=== PATIENT | female | born 1950 | race Caucasian/White ===

== ENCOUNTER 2018-02-17 08:38 | Day surgery (SDC) | payer OTHER ==
[~2018-02-17] VITALS: Ht 157.5 cm; Wt 60.0 kg
[~2018-02-17 08:38] MED LIST: ALBU90OI INH; ALEN70 PO; ASPI81EC PO; ATOR80 PO; Aspir 8181 MG PO; B-COMPLEX WITH1 EAC1 PO; CALCA500CH PO; DOCU100 PO; EFFIENT10 MG PO; EXFORGE 5/160 PO; Exforge 5-1601 EACH PO; GLIP10ER PO; HYDACE10B PO; HYDACE5 PO; LACT10SY PO; LISI5 PO; LORA10ER PO; METF500; METF500 PO; METF500C PO; METO50ER PO; NAC600 MG PO; NAPR500EC PO; Nitrostat0.4 MG SL; Norco 10-325 T1 EACH PO; OXYACE5T PO; Prinivil10 MG PO; SENN187 PO; TICA90TA PO; VITAMIN D3400 UNIT PO; WARF2
[2018-02-17 09:52] LABS: BASOPHILS ABSOLUTE AUTO 0.02 K/mm3 (0.00-0.23); BASOPHILS PERCENT AUTO 0 % (0-2); EOSINOPHILS ABSOLUTE AUTO 0.11 K/mm3 (0.00-0.68); EOSINOPHILS PERCENT AUTO 1 % (0-6); Hematocrit 39.2 % (33.0-51.0); Hemoglobin 12.5 g/dL (11.5-16.0); IMMATURE GRAN ABSOLUTE AUTO 0.03 K/mm3 (0.00-0.10); IMMATURE GRAN PERCENT AUTO 0 % (0-1); LYMPHOCYTES ABSOLUTE AUTO 1.02 K/mm3 (0.84-5.20); LYMPHOCYTES PERCENT AUTO 13 % (21-46); MONOCYTES ABSOLUTE AUTO 0.44 K/mm3 (0.16-1.47); MONOCYTES PERCENT AUTO 6 % (4-13); Mean Corpuscular HGB 28.2 pg (26.0-34.0); Mean Corpuscular HGB Conc 31.9 g/dL (31.5-36.5); Mean Corpuscular Volume 88 fL (80-100); Mean Platelet Volume 9.5 fL (9.1-12.4); NEUTROPHILS ABSOLUTE AUTO 6.45 K/mm3 (1.96-9.15); NEUTROPHILS PERCENT AUTO 80 % (41-73); Platelet Count 260 K/mm3 (150-400); RDW Coefficient Variation 14.1 % (11.7-14.2); RDW Standard Deviation 45.3 fL (35.1-46.3); Red Blood Cell Count 4.44 M/mm3 (3.80-5.20); White Blood Cell Count 8.07 K/mm3 (4.00-11.30)
[2018-02-17 10:07] LABS: International Normalized Ratio 1.05; Prothrombin Time Results 10.8 Sec (9.7-11.5)
[2018-02-17 10:18] LABS: Anion Gap 7 mmol/L (6-16); Blood Urea Nitrogen 14 mg/dL (8-24); Bun/Creatinine Ratio 20.1 (12.0-20.0); CO2, Blood 29 mmol/L (21-32); Calcium, Blood 8.4 mg/dL (8.5-10.1); Chloride, Blood 107 mmol/L (98-108); Glomerular Filtration Rate >60 (60-); Glucose, Blood 171 mg/dL (70-99); Potassium, Blood 4.2 mmol/L (3.5-5.5); Sodium, Blood 143 mmol/L (136-145)
== END 2018-02-17 22:41 | disposition home or self-care (01) ==
LOC: MHTC 08:38
PROVIDERS: Internal Medicine Cardiovascular Disease
PROC: B211YZZ Fluoroscopy of Multiple Coronary Arteries using Other Contrast (ICD-10-PCS; principal; 2018-02-17)
PROC: 4A023N7 Measurement of Cardiac Sampling and Pressure, Left Heart, Percutaneous Approach (ICD-10-PCS; principal; 2018-02-17)
DX: T82.855A Stenosis of coronary artery stent, initial encounter (principal); E78.00 Pure hypercholesterolemia, unspecified; I10 Essential (primary) hypertension; E11.9 Type 2 diabetes mellitus without complications; Z79.84 Long term (current) use of oral hypoglycemic drugs; I25.2 Old myocardial infarction; I25.5 Ischemic cardiomyopathy; E78.5 Hyperlipidemia, unspecified; I34.2 Nonrheumatic mitral (valve) stenosis; J44.9 Chronic obstructive pulmonary disease, unspecified
CPT/HCPCS: 80048; 85025; 85347; 85610; 93458; 99152; 99153; C1769; C1894; J0690; J1644; J2060; J2250; J3010; J7030; Q9967

== ENCOUNTER 2020-10-04 00:06 | Inpatient (IN) | payer OTHER ==
[~2020-10-04] VITALS: Ht 154.9 cm; Wt 76.7 kg
[~2020-10-04 00:06] MED LIST changes: +FURO40 PO; +K-TAB ER20 MEQ PO; +LEVO750 PO
[2020-10-04] MEDS ORDERED: DILT180 PO (00:44)
[2020-10-04] MEDS ORDERED: GLIP5ER PO (00:45)
[2020-10-04] MEDS ORDERED: Percocet 5-3251 EACH PO (00:46)
[2020-10-04] MEDS ORDERED: POTA10T PO (00:46)
[2020-10-04] MEDS ORDERED: PANT40 PO (00:46)
[2020-10-04] MEDS ORDERED: ALEN70 PO (00:47)
[2020-10-04] MEDS ORDERED: RYBELSUS3 MG PO (00:47)
[2020-10-04 01:40] LABS: BASOPHILS ABSOLUTE AUTO 0.02 K/mm3 (0.00-0.23); BASOPHILS PERCENT AUTO 0 % (0-2); EOSINOPHILS PERCENT AUTO 0 % (0-6); Hematocrit 38.5 % (33.0-51.0); Hemoglobin 11.4 g/dL (11.5-16.0); IMMATURE GRAN ABSOLUTE AUTO 0.05 K/mm3 (0.00-0.10); IMMATURE GRAN PERCENT AUTO 1 % (0-1); LYMPHOCYTES ABSOLUTE AUTO 0.72 K/mm3 (0.84-5.20); LYMPHOCYTES PERCENT AUTO 8 % (21-46); MONOCYTES ABSOLUTE AUTO 0.18 K/mm3 (0.16-1.47); MONOCYTES PERCENT AUTO 2 % (4-13); Mean Corpuscular HGB 30.3 pg (26.0-34.0); Mean Corpuscular HGB Conc 29.6 g/dL (31.5-36.5); Mean Corpuscular Volume 102 fL (80-100); Mean Platelet Volume 10.7 fL (9.1-12.4); NEUTROPHILS ABSOLUTE AUTO 7.67 K/mm3 (1.96-9.15); NEUTROPHILS PERCENT AUTO 89 % (41-73); Platelet Count 214 K/mm3 (150-400); RDW Coefficient Variation 17.2 % (11.7-14.2); RDW Standard Deviation 64.1 fL (35.1-46.3); Red Blood Cell Count 3.76 M/mm3 (3.80-5.20); White Blood Cell Count 8.64 K/mm3 (4.00-11.30)
[2020-10-04 01:57] LABS: International Normalized Ratio 1.47; Prothrombin Time Results 15.4 Sec (9.7-11.5)
[2020-10-04 02:07] LABS: Albumin, Blood 2.5 g/dL (3.4-5.0); Albumin/Globulin Ratio 0.6 (0.8-1.8); Bilirubin, Total 1.4 mg/dL (0.1-1.0); Calcium, Blood 7.4 mg/dL (8.5-10.1); Creatinine, Blood 2.3 mg/dL (0.40-1.00); Globulin, Blood 4.2 g/dL (2.2-4.0); Magnesium, Blood 2.4 mg/dL (1.6-2.4); Potassium, Blood 5.3 mmol/L (3.5-5.5); Total Protein, Blood 6.7 g/dL (6.4-8.2); Troponin I 0.136 ng/mL (0.000-0.040)
[2020-10-04 02:38] LABS: Source, Urine Catheter
[2020-10-04 03:16] LABS: Bilirubin, Urine Neg (Neg); Blood, Urine 3+ (Neg); Glucose Qualitative, Urine Neg (Neg); Ketones, Urine Neg (Neg); Leukocyte Esterase, Urine 1+ (Neg); Nitrite, Urine Neg (Neg); Protein, Urine 3+ (Neg); Urobilinogen, Urine NORM (Normal)
[2020-10-04 03:29] LABS: Appearance, Urine Hazy (Clear); Color, Urine Yellow (P-Yellow)
[2020-10-04 03:30] LABS: Bacteria Rare /hpf; Red Blood Cells, Urine 0-2 /hpf (0-2); White Blood Cells, Urine 0-2 /hpf (0-5); Yeast/Fungi Urine Mod /hpf
[2020-10-04 03:31] LABS: Amorphous Mod (0-Heavy); Squamous Epithelial Cells Rare /hpf (Few)
[2020-10-04 05:59] LABS: Influenza A, PCR NEGATIVE (NEGATIVE); Influenza B, PCR NEGATIVE (NEGATIVE); Resp Syncytial Virus, PCR NEGATIVE (NEGATIVE)
[2020-10-04 06:01] LABS: SARS-Cov-2 (COVID-19) PCR, MMC POSITIVE (NEGATIVE)
--- NOTE | 2020-10-04 09:00 | NUR ---
ADMIT PT ARRIVED TO ICU 11 AT 0820 VIA ER BED. PT IS AWAKE, ALERT, AND ORIENTED TO SELF AND ANSWERING SIMPLE QUESTIONS. PT IS CONFUSED AND FORGETFUL. PT INITIALLY ON NONREBREATHER AT 15L. PT PLACED ON AIRVO AFTER TRANSFER TO ICU BED. PT CONTINUALLY PULLING AT AIRVO, FREQUENT REMIDERS TO KEEP AIRVO IN PLACE NEEDED. PT WITH HR AFIB 100-130'S, HYPOTENSIVE WITH SBP 70-90'S. PERIPHERAL IV'S IN PLACE WITH NS BOLUS INFUSING. ATTENDS IN PLACE. PT WITH ABRASION TO COCCYX NOTED. MEPILEX PLACED. DR ALMEIDA NOTIFIED OF CONSULT. WILL CONTINUE TO MONITOR.
--- NOTE | 2020-10-04 09:04 | NUR ---
CALL TO FAMILY CALLED AND SPOKE WITH PT'S DAUGHTER WENDI REGARDING PT'S DECOMPENSATION AND GOALS OF CARE. SHE STATES PT HAS BEEN VERY RESISTANT TO DISCUSS ADVANCED CARE PLANNING IN THE PAST AND HAS BEEN CONSISTENTLY STATING FULL CODE. WENDI AGREES TO AT LEAST A "TRIAL OF EVERYTHING", TO INCLUDE INTUBATION, CPR AND VASOPRESSORS IF NEEDED. WENDI AGREEABLE TO CENTRAL LINE/PICC LINE PLACEMENT, AND STATES PT WOULD ALSO ACCEPT BLOOD PRODUCTS IF NEEDED.
[2020-10-04 10:53] LABS: Hematocrit 33.8 % (33.0-51.0); Hemoglobin 10.1 g/dL (11.5-16.0); Mean Corpuscular HGB 30.6 pg (26.0-34.0); Mean Corpuscular HGB Conc 29.9 g/dL (31.5-36.5); Mean Corpuscular Volume 102 fL (80-100); Mean Platelet Volume 10.4 fL (9.1-12.4); Platelet Count 173 K/mm3 (150-400); RDW Coefficient Variation 17.3 % (11.7-14.2); RDW Standard Deviation 65.2 fL (35.1-46.3); White Blood Cell Count 7.71 K/mm3 (4.00-11.30)
[2020-10-04 11:15] LABS: Albumin/Globulin Ratio 0.6 (0.8-1.8); Bilirubin, Total 0.7 mg/dL (0.1-1.0); Bun/Creatinine Ratio 32.4 (12.0-20.0); Calcium, Blood 6.6 mg/dL (8.5-10.1); Creatinine, Blood 2.22 mg/dL (0.40-1.00); Globulin, Blood 3.4 g/dL (2.2-4.0); Potassium, Blood 5.4 mmol/L (3.5-5.5); Total Protein, Blood 5.4 g/dL (6.4-8.2)
[2020-10-04 11:34] LABS: Source, Urine Catheter
[2020-10-04 11:45] LABS: Appearance, Urine Hazy (Clear); Bilirubin, Urine Neg (Neg); Blood, Urine 2+ (Neg); Color, Urine Yellow (P-Yellow); Glucose Qualitative, Urine Neg (Neg); Ketones, Urine Neg (Neg); Leukocyte Esterase, Urine 2+ (Neg); Nitrite, Urine Neg (Neg); Protein, Urine 3+ (Neg); Specific Gravity, Urine 1.025 (1.003-1.022); Urobilinogen, Urine NORM (Normal)
[2020-10-04 11:59] LABS: Bacteria Few /hpf; Red Blood Cells, Urine 0-2 /hpf (0-2); Squamous Epithelial Cells Few /hpf (Few); Yeast/Fungi Urine Many /hpf
[2020-10-04 12:07] LABS: BASOPHILS PERCENT MAN 0 % (0-2); EOSINOPHILS PERCENT MAN 0 % (0-6); LYMPHOCYTES ABSOLUTE MAN 0.23 K/mm3 (0.84-5.20); LYMPHOCYTES PERCENT MAN 3 % (21-46); MONOCYTES ABSOLUTE MAN 0.15 K/mm3 (0.16-1.47); MONOCYTES PERCENT MAN 2 % (4-13); NEUTROPHILS ABSOLUTE MAN 7.32 K/mm3 (1.96-9.15); SEG NEUTROPHILS PERCENT MAN 95 % (41-73); TOTAL CELLS COUNTED 100
--- NOTE | 2020-10-04 12:28 | NUR ---
UPDATE PT REMAINS ON BIPAP AT THIS TIME, 05/03, FIO2 TITRATED DOWN TO 65%. PT REMAINS HYPOTENSIVE AND HR INCREASED TO 130-150'S AFIB. DR ALMEIDA AWARE. 20 MG CARDIZEM IV PUSH GIVEN WITH DECREASE IN HR TO 80-100'S AFIB. LEVOPHED REMAINS AT 10 MCG/MIN.
--- NOTE | 2020-10-04 13:05 | NUR ---
CARE COORDINATION REFERRAL - ADMIT: 10/04/20 DISCHARGE: DX:PT IS COVID +, SOB. CC: 08/16/20 DISCHARGE: 09/03/20 DX: TOXIC METABOLIC ENCEPHALOPATHY PILAR CALL: RESIDENCE: [facility] CAREGIVER: DAUGHTER WENDI LARA [phone] DX: CHF, COVID 19, HTN, DM-TYPE 2, SEE LIST DME: [employer]OCK[employer] CCM: REFERRAL 2020 HOME HEALTH: [facility]- SUMMARY: Admit: 10/04/20
[2020-10-04 14:27] LABS: PCO2 Venous 63.5 mmHg (38-42); PO2 Venous 41.7 mmHg (38-42); pH Blood Venous 7.15 (7.34-7.37)
--- NOTE | 2020-10-04 17:37 | NUR ---
SHIFT SUMMARY PT HAS STABILIZED THIS AFTERNOON. PT REMAINS ON BIPAP AND SEDATED WITH PRECEDEX. BIPAP 16/5, FIO2 50%. PT WITH QUICK DESATURATION AND LONG RECOVERY WITH TURNS/REPOSITIONING. PRECEDEX INFUSING AT 0.4 MCG/KG/MIN. PT GRIMMACES WITH CARE, BUT APPEARS TO BE RESTING QUIETLY WHEN UNDISTURBED. PT HAS REMAINED HYPOTENSIVE THIS SHIFT. PICC LINE TO NAM INSERTED, AND ART LINE TO LEFT FEMORAL SITE PLACED. LEVOPHED INFUSING AT 10 MCG/MIN AT THIS TIME, VASOPRESSIN AT 0.04 UNITS/HR, AMIO 1 MG/MIN, AND HEPARIN 13 UNITS/KG/HR. HR REMAINS IN AFIB. CHRISTIE TEMP PROBE IN PLACE WITH MINIMAL AMOUNT OF DARK YELLOW URINE OUTPUT THIS SHIFT. NO FAMILY AT BEDSIDE. WILL CONTINUE TO MONITOR AND REPORT OFF TO ONCOMING RN.
[2020-10-04 18:26] LABS: Base Excess Venous -9.3 mmol/L; Bicarbonate Venous 16.7 mmol/L (24.0-30.0); PCO2 Venous 54.7 mmHg (38-42); PO2 Venous 44.1 mmHg (38-42); pH Blood Venous 7.16 (7.34-7.37)
--- NOTE | 2020-10-04 19:00 | NUR ---
ASSUMED CARE ASSUMED CARE OF PATIENT. REMAINS ON BIPAP 16/5, BUR 14, FIO2 50%. RR 25-30s. SEDATED WITH PRECEDEX AT 0.4MCG/KG/HR. OPENS EYES TO VERBAL STIMULI. NOT FOLLOWING COMMANDS AT THIS TIME, BUT DOES MOVE ALL EXTREMITIES WEAKLY. SPEECH IS GARBLED AND DIFFICULT TO UNDERSTAND. MONITOR SHOWS AFIB, RATE 100-120s. BP STABLE WITH LEVOPHED AT 10MCG/MIN AND VASOPRESSIN AT 0.04UNITS/MIN. AMIODARONE INFUSING AT 1MG/MIN. HEPARIN GTT INFUSING PER PHARMACY. NAM PICC LINE NOTED. CHRISTIE PATENT AND DRAINING MINIMAL LINETTE URINE. PT IS IN DROPLET/AIRBORNE ISOLATION FOR COVID-19. SEE SHIFT ASSESSMENT FOR FULL ASSESSMENT.
[2020-10-04 19:05] LABS: Bun/Creatinine Ratio 30.2 (12.0-20.0); Calcium, Blood 6.8 mg/dL (8.5-10.1); Creatinine, Blood 2.35 mg/dL (0.40-1.00); Potassium, Blood 6.2 mmol/L (3.5-5.5)
[2020-10-05 04:17] LABS: Hematocrit 29.8 % (33.0-51.0); Hemoglobin 9.3 g/dL (11.5-16.0); Mean Corpuscular HGB 30.5 pg (26.0-34.0); Mean Corpuscular HGB Conc 31.2 g/dL (31.5-36.5); Mean Corpuscular Volume 98 fL (80-100); Mean Platelet Volume 10.6 fL (9.1-12.4); NRBC ABSOLUTE 0.02 K/mm3 (0.00-0.02); NRBC Auto 0.2 /100 WBC (0.0-0.2); Platelet Count 191 K/mm3 (150-400); RDW Coefficient Variation 17.3 % (11.7-14.2); RDW Standard Deviation 61.4 fL (35.1-46.3); Red Blood Cell Count 3.05 M/mm3 (3.80-5.20); White Blood Cell Count 11.33 K/mm3 (4.00-11.30)
[2020-10-05 04:33] LABS: Alanine Aminotransfer (ALT/SGP 58 U/L (12-78); Albumin, Blood 1.8 g/dL (3.4-5.0); Albumin/Globulin Ratio 0.6 (0.8-1.8); Alk Phos 127 U/L (50-136); Anion Gap 7 mmol/L (6-16); Aspartate Aminotrans (AST/SGOT 158 U/L (12-37); Bilirubin, Total 0.7 mg/dL (0.1-1.0); Blood Urea Nitrogen 77 mg/dL (8-24); Bun/Creatinine Ratio 32.1 (12.0-20.0); CO2, Blood 25 mmol/L (21-32); Calcium, Blood 6.6 mg/dL (8.5-10.1); Chloride, Blood 109 mmol/L (98-108); Glomerular Filtration Rate 21 (60-); Glucose, Blood 223 mg/dL (70-99); Magnesium, Blood 1.9 mg/dL (1.6-2.4); Potassium, Blood 4.9 mmol/L (3.5-5.5); Sodium, Blood 141 mmol/L (136-145); Total Protein, Blood 4.8 g/dL (6.4-8.2); Vancomycin, Random 12.7 ug/mL
[2020-10-05 04:42] LABS: BAND PERCENT MAN 2 % (0-8); BASOPHILS PERCENT MAN 0 % (0-2); EOSINOPHILS PERCENT MAN 0 % (0-6); LYMPHOCYTES ABSOLUTE MAN 0.45 K/mm3 (0.84-5.20); LYMPHOCYTES PERCENT MAN 4 % (21-46); MONOCYTES ABSOLUTE MAN 0.11 K/mm3 (0.16-1.47); MONOCYTES PERCENT MAN 1 % (4-13); NEUTROPHILS ABSOLUTE MAN 10.76 K/mm3 (1.96-9.15); SEG NEUTROPHILS PERCENT MAN 93 % (41-73); TOTAL CELLS COUNTED 100
--- NOTE | 2020-10-05 06:10 | NUR ---
SHIFT SUMMARY NO ACUTE CHANGES. REMAINED ON BIPAP T/O SHIFT WITH BREAKS LESS THAN ONE MINUTE FOR ORAL CARE. BIPAP 16/5, BUR 14, FIO2 50%. RR 20s. SEDATED WITH PRECEDEX BETWEEN 0.4-0.5MCG/KG/HR TO HELP PT TOLERATE BIPAP. PRECEDEX NOW AT 0.5MCG/KG/HR. PT CONTINUES TO BE ANXIOUS WHEN AWAKE. TEARFUL AT TIMES. MONITOR SHOWS AFIB, RATE 80s-100s THIS AM. BP STABLE WITH LEVOPHED NOW AT 3MCG/MIN. VASOPRESSIN HAS BEEN ON STAND-BY SINCE 49. AMIODARONE INFUSING AT 0.5MG/MIN PER ORDER. HEPARIN GTT NOW AT 11UNITS/KG/HR PER PHARMACY. BICARB GTT INFUSING AT 100CC/HR PER ORDER. NPO. CHRISTIE PATENT WITH 200CC URINE OUTPUT. BILATERAL TOES ARE STILL PURPLE/DUSKY, BUT HAS SLIGHTLY IMPROVED. FEET ARE COLD BILATERALLY. NAM PICC LINE PATENT WITH DRSG C/D/I. LEFT FEMORAL A-LINE, PATENT. ORAL CARE DONE Q4H. REPOSTIONED Q2H. WILL REPORT TO ONCOMING RN WHEN AVAILABLE.
--- NOTE | 2020-10-05 08:00 | NUR ---
ASSUMED CARE REPORT RECIEVED. PT IS RESTING IN BED QUIETLY ON BIPAP 16/5, FIO2 45%. PT AWAKENS EASILY TO VERBAL STIMULI. PT SPEAKS SOME WORDS, BUT IS DIFFICULT TO COMPREHEND. PT IS ABLE TO SQUEEZE HANDS UPON COMMAND. PT SHAKES HEAD NO TO PAIN. VITAL SIGNS STABLE AT THIS TIME. PICC TO NAM C/D/I. LEVOPHED INFUSING AT 4 MCG/MIN, BICARB AT 100 ML/HR, NS TKO, HEPARIN AT 11 UNITS/KG/HR, AMIODARONE 0.5 MG/MIN, AND PRECEDEX AT 0.5 MCG/KG/MIN. ART LINE IN PLACE TO LEFT FEMORAL SITE. GOOD WAVEFORM NOTED. CHRISTIE TEMP PROBE IN PLACE WITH MINIMAL AMOUNT OF YELLOW URINE OUTPUT NOTED. ATTENDS IN PLACE. TOES APPEAR DUSKY. WILL CONTINUE TO MONITOR.
[2020-10-05 09:42] LABS: PCO2 Arterial 49.9 mmHg (35-45); PO2 Arterial 98.4 mmHg (80-100); pH Blood Arterial 7.31 (7.35-7.45)
--- NOTE | 2020-10-05 13:30 | NUR ---
AIRVO TRIAL TRIALED PT OFF BIPAP AND BACK ON AIRVO WITH RT AT BEDSIDE. PT WITH IMMEDIATE INCREASE IN RESPIRATORY EFFORT AND RR TO 30'S. PT COMPLAINED OF SOB. PT PLACED BACK ON BIPAP 16/5, FIO2 40%. WILL CONTINUE TO MONITOR.
[2020-10-05 15:29] LABS: PO2 Arterial 96.7 mmHg (80-100); pH Blood Arterial 7.36 (7.35-7.45)
--- NOTE | 2020-10-05 17:59 | NUR ---
SHIFT SUMMARY NO ACUTE CHANGES THIS SHIFT. PT REMAINS BIPAP DEPENDENT, SETTINGS 16/5, FIO2 40%. PT REMAINS CONFUSED. PT MOANS OUT SOME WORDS AT TIMES. VITAL SIGNS STABLE. ART LINE TO LEFT FEMORAL SITE REMAINS C/D/I. PICC TO NAM REMAINS IN PLACE WITH LEVOPHED TITRATED DOWN TO 2 MCG/MIN, PRECEDEX AT 0.5 MCG/KG/MIN, AMIODARONE 0.5 MG/MIN, AND NS TKO. HEPARIN REMAINS ON STANDBY PER PHARMACY. CHRISTIE TEMP PROBE IN PLACE WITH 100 ML CLOUDY URINE OUTPUT THIS SHIFT. WILL CONTINUE TO MONITOR AND REPORT OFF TO ONCOMING RN.
--- NOTE | 2020-10-05 19:00 | NUR ---
ASSUMED CARE ASSUMED CARE OF PATIENT. REMAINS ON BIPAP 16/5, BUR 14, FIO2 40%. RR MID-20s.. SEDATED WITH PRECEDEX AT 0.5MCG/KG/HR. OPENS EYES TO VERBAL STIMULI. FOLLOWS SIMPLE COMMANDS. MOVE ALL EXTREMITIES WEAKLY. SPEECH IS DIFFICULT TO UNDERSTAND AT TIMES. PT IS TEARFUL AND STATES "I DON'T WANT TO " AND "I KNOW I'M GOING TO ." REASSURANCE PROVIDED. MONITOR SHOWS AFIB, RATE 90-110s. BP STABLE WITH LEVOPHED AT 2MCG/MIN. AMIODARONE INFUSING AT 0.5MG/MIN. HEPARIN GTT INFUSING PER PHARMACY. NAM PICC LINE NOTED. CHRISTIE PATENT AND DRAINING SMALL AMOUNT OF YELLOW URINE WITH SEDIMENT. PT IS IN DROPLET/AIRBORNE ISOLATION FOR COVID-19. SEE SHIFT ASSESSMENT FOR FULL ASSESSMENT.
[2020-10-06 04:17] LABS: Hematocrit 29.8 % (33.0-51.0); Hemoglobin 9.3 g/dL (11.5-16.0); Mean Corpuscular HGB 30.3 pg (26.0-34.0); Mean Corpuscular HGB Conc 31.2 g/dL (31.5-36.5); Mean Corpuscular Volume 97 fL (80-100); Mean Platelet Volume 10.7 fL (9.1-12.4); Platelet Count 191 K/mm3 (150-400); RDW Coefficient Variation 17.2 % (11.7-14.2); RDW Standard Deviation 61.3 fL (35.1-46.3); Red Blood Cell Count 3.07 M/mm3 (3.80-5.20); White Blood Cell Count 10.67 K/mm3 (4.00-11.30)
[2020-10-06 04:36] LABS: Alanine Aminotransfer (ALT/SGP 51 U/L (12-78); Albumin, Blood 1.8 g/dL (3.4-5.0); Albumin/Globulin Ratio 0.6 (0.8-1.8); Alk Phos 112 U/L (50-136); Anion Gap 8 mmol/L (6-16); Aspartate Aminotrans (AST/SGOT 116 U/L (12-37); Bilirubin, Total 0.7 mg/dL (0.1-1.0); Blood Urea Nitrogen 87 mg/dL (8-24); Bun/Creatinine Ratio 32.3 (12.0-20.0); CO2, Blood 24 mmol/L (21-32); Calcium, Blood 6.6 mg/dL (8.5-10.1); Chloride, Blood 108 mmol/L (98-108); Creatinine, Blood 2.69 mg/dL (0.40-1.00); Globulin, Blood 3.2 g/dL (2.2-4.0); Glomerular Filtration Rate 19 (60-); Glucose, Blood 169 mg/dL (70-99); Potassium, Blood 5.5 mmol/L (3.5-5.5); Sodium, Blood 140 mmol/L (136-145); Vancomycin, Random 19.4 ug/mL
[2020-10-06 04:43] LABS: BASOPHILS PERCENT MAN 0 % (0-2); EOSINOPHILS PERCENT MAN 0 % (0-6); LYMPHOCYTES ABSOLUTE MAN 0.21 K/mm3 (0.84-5.20); LYMPHOCYTES PERCENT MAN 2 % (21-46); MONOCYTES ABSOLUTE MAN 0.21 K/mm3 (0.16-1.47); MONOCYTES PERCENT MAN 2 % (4-13); NEUTROPHILS ABSOLUTE MAN 10.24 K/mm3 (1.96-9.15); SEG NEUTROPHILS PERCENT MAN 96 % (41-73); TOTAL CELLS COUNTED 100
--- NOTE | 2020-10-06 06:28 | NUR ---
SHIFT SUMMARY NO ACUTE CHANGES. REMAINED ON BIPAP T/O SHIFT WITH BREAKS OF ONE TO TWO MINUTES FOR ORAL CARE. BIPAP 16/5, BUR 14, FIO2 40%. RR 20s. SEDATED WITH PRECEDEX BETWEEN 0.6-0.9MCG/KG/HR TO HELP PT TOLERATE BIPAP. PRECEDEX NOW AT 0.9MCG/KG/HR. PT CONTINUES TO BE ANXIOUS WHEN AWAKE. TEARFUL AT TIMES. MONITOR SHOWS AFIB, RATE 80s-110s. BP STABLE WITH LEVOPHED NOW AT 1MCG/MIN. AMIODARONE INFUSING AT 0.5MG/MIN PER ORDER. HEPARIN GTT NOW AT 6.5UNITS/KG/HR PER PHARMACY. PTT SCHEDULED FOR 0700. NPO. CHRISTIE PATENT WITH 150CC URINE OUTPUT. SEDIMENT NOTED. BILATERAL TOES ARE DUSKY/PURPLE. FEET ARE COLD BILATERALLY. NAM PICC LINE PATENT WITH DRSG C/D/I. LEFT FEMORAL A-LINE, PATENT. ORAL CARE DONE Q4H. REPOSTIONED Q2H. WILL REPORT TO ONCOMING RN WHEN AVAILABLE.
--- NOTE | 2020-10-06 17:40 | NUR ---
SHIFT SUMMARY PT HAS REMAINED ON BIPAP THROUGHOUT THE SHIFT. PT DID NOT TOLERATE SHORT TRIAL ONTO AIRVO. BIPAP SETTINGS 10/5, FIO2 40%. PT HAS REMAINED ALERT, BUT CONFUSED THROUGHOUT THE DAY. PT WITH REPETITIVE PULLING AT BIPAP AND IV LINES. SBW RESTRAINTS IN PLACE AT THIS TIME. VITAL SIGNS HAVE REMAINED STABLE. LEVOPHED TITRATED OFF THIS MORNING. HR REMAINS AFIB, CONTROLLED WITH CARDIZEM GTT AT 2 MG/HR. HEPARIN INFUSING AT 5.5 UNITS/KG/HR, PRECEDEX INFUSING AT 1.2 MCG/KG/MIN. PICC TO NAM C/D/I. ARTLINE TO LEFT FEMORAL SITE REMAINS C/D/I. DOBHOFF PLACED THIS AFTERNOON. TF STARTED AT 10 ML/HR. CHRISTIE TEMP PROBE REMAINS IN PLACE WITH MINIMAL CLOUDY YELLOW OUTPUT NOTED. WILL CONTINUE TO MONITOR AND REPORT OFF TO ONCOMING RN.
--- NOTE | 2020-10-06 21:26 | NUR ---
PATIENT SLEEPING WITH BIPAP IN PLACE, AWAKENS TO VERBAL STIMULI. ANSWERING QUESTIONS APPROPRIATELY, YET FORGETTING THAT SHE NEEDS TO KEEP BIPAP AND NG IN PLACE. BILAT WRIST RESTRAINTS IN PLACE TO REMIND PATIENT TO NOT PULL AT LINES AND MASK. PATIENT COOPERATIVE WITH ORAL CARE WITH SUCTION TOOTH BRUSH. BIPAP CONTINUES AT 10/5 FIO2 35% DOBHOFF IN PLACE WITH NEPRO AT GOAL RATE OF 10 CC/HR. PRECEDEX 1.2 TO HELP PATIENT GIOVANNI BIPAP. CARDIZEM 2 TO HELP REGULATE AFIB RATE. HEPARIN DRIP CONTINUES PER PHARMACY.
--- NOTE | 2020-10-07 00:30 | NUR ---
PATIENT ABLE TO HAVE APROX 2 MIN BREAK FROM BIPAP ON 10L/HIGH FLOW NC NEEDING TO CONTINUOUSLY REMIND PATIENT TO BREATH THROUGH HER NOSE. PATIENT TEARFUL, ASKING WHEN SHE CAN GO HOME, AND WANTING TO NOT WEAR BIPAP ANYMORE. EXPLAINED TO PATIENT THE NEED FOR BIPAP DUE TO DROPPING OF HER OXYGEN LEVEL WHEN IT IS OFF, AND THAT WE ARE TRYING TO HELP HER GET BETTER.
[2020-10-07 04:40] LABS: Hematocrit 30.9 % (33.0-51.0); Hemoglobin 9.8 g/dL (11.5-16.0); Mean Corpuscular HGB 30.6 pg (26.0-34.0); Mean Corpuscular HGB Conc 31.7 g/dL (31.5-36.5); Mean Corpuscular Volume 97 fL (80-100); Mean Platelet Volume 10.8 fL (9.1-12.4); NRBC ABSOLUTE 0.02 K/mm3 (0.00-0.02); NRBC Auto 0.1 /100 WBC (0.0-0.2); Platelet Count 174 K/mm3 (150-400); RDW Standard Deviation 59.9 fL (35.1-46.3); White Blood Cell Count 14.87 K/mm3 (4.00-11.30)
[2020-10-07 04:56] LABS: Anion Gap 7 mmol/L (6-16); Blood Urea Nitrogen 100 mg/dL (8-24); Bun/Creatinine Ratio 34.4 (12.0-20.0); CO2, Blood 24 mmol/L (21-32); Calcium, Blood 7.3 mg/dL (8.5-10.1); Chloride, Blood 109 mmol/L (98-108); Creatinine, Blood 2.91 mg/dL (0.40-1.00); Glomerular Filtration Rate 17 (60-); Glucose, Blood 172 mg/dL (70-99); Phosphorus, Blood 4.9 mg/dL (2.5-4.9); Potassium, Blood 5.6 mmol/L (3.5-5.5); Sodium, Blood 140 mmol/L (136-145); Vancomycin, Random 18.7 ug/mL
[2020-10-07 05:29] LABS: BAND PERCENT MAN 9 % (0-8); BASOPHILS PERCENT MAN 0 % (0-2); EOSINOPHILS PERCENT MAN 0 % (0-6); LYMPHOCYTES ABSOLUTE MAN 0.89 K/mm3 (0.84-5.20); LYMPHOCYTES PERCENT MAN 6 % (21-46); MONOCYTES ABSOLUTE MAN 0.29 K/mm3 (0.16-1.47); MONOCYTES PERCENT MAN 2 % (4-13); NEUTROPHILS ABSOLUTE MAN 13.68 K/mm3 (1.96-9.15); SEG NEUTROPHILS PERCENT MAN 83 % (41-73); TOTAL CELLS COUNTED 100
--- NOTE | 2020-10-07 06:24 | NUR ---
SUMMARY PATIENT SLEEPING MOST OF THE NIGHT WITH BIPAP IN PLACE. AWAKENS TO SLIGHT STIMULI, HAVING SHORT BREAKS FROM BIPAP ON 10L/NC FOR ORAL CARE, PATIENT BECOMING ANXIOUS WITH HR AND BP ELEVATING WHEN OFF BIPAP. PRECEDEX CONTINUES AT 1 MCG TO HELP PATIENT GIOVANNI BIPAP. CARDIZEM DRIP CONTINUES AT 5 MG/HR FOR RATE CONTROL OF AFIB. HR UP TO 130'S WHEN OFF BIPAP. TUBE FEEDING VIA DOBHOFF AT GOAL RATE OF 10 CC/HR NOT CHECKING RESIDUAL DUE TO USING DOBHOFF FOR FEEDING. HEPARIN DRIP CONTINUES PER PHARMACY, BILAT FEET WITH 1+ PULSES, CAP REFILL BETTER. ART LINE TO LEFT GROIN CONTINUES WITH GOOD WAVEFORM.
--- NOTE | 2020-10-07 10:07 | NUR ---
PT IS LIGHTLY SEDATE ON PRECEDEX GTT AT 1.0MCG WILL TITRATE ABLE. PT IV GTTS CHECKED NOTED. PIVOT AT 10ML PER ORDER. A-LINE ZEROED AND LF SITE INTACT. BP RANGING 90-105 SBP AND WILL FOLLOW. PT ORAL CARE DONE. PT IS RESTRAINED AND IS SOMEWHAT ANXIOUS INTERMITTENTLY EVEN WITH PRECEDEX. U.O. IS NOTED LOW VOLUME. IV SITES INTACT.
--- NOTE | 2020-10-07 18:41 | NUR ---
PRECEDEX GTT HAS BEEN TURNED DOWN SLOWLY ALL DAY. CARDIZEM GTT, HEPARIN GTT, AND 1 LITER NS REMAINS INFUSING. PT IS LIGHTLY SEDATED AND WELL AWAKE WITH REPOSITIONING AND CARE. A-LINE REMAINS WITH GOOD WAVEFORM AND BP STABLE DUR. I/O NOTED AND RESULTS WILL BE CALLED TO DR SUAZO AVALIBLE. DR KINNEY WAS IN EARLIER AND WILL REASSESS PT IN AM.
[2020-10-07 19:55] LABS: Albumin, Blood 1.7 g/dL (3.4-5.0); Anion Gap 11 mmol/L (6-16); Blood Urea Nitrogen 107 mg/dL (8-24); Bun/Creatinine Ratio 36.5 (12.0-20.0); CO2, Blood 20 mmol/L (21-32); Calcium, Blood 7.4 mg/dL (8.5-10.1); Chloride, Blood 110 mmol/L (98-108); Creatinine, Blood 2.93 mg/dL (0.40-1.00); Glomerular Filtration Rate 17 (60-); Glucose, Blood 183 mg/dL (70-99); Phosphorus, Blood 5.3 mg/dL (2.5-4.9); Potassium, Blood 5.2 mmol/L (3.5-5.5); Sodium, Blood 141 mmol/L (136-145)
--- NOTE | 2020-10-07 20:02 | NUR ---
DOCTOR LAKEISHA NOTIFIED OF LABS, NO NEW ORDERS AT THIS TIME
--- NOTE | 2020-10-07 20:30 | NUR ---
PATIENT RESTING QUIETLY AWAKENS TO VERBAL STIMULI, ANSWERING QUESTIONS APPROPRIATELY, YET SLIGHTLY FORGETFUL. ASKING SEVERAL TIMES IF SHE IS GETTING BETTER AND WHEN SHE CAN GO HOME. BIPAP 10/5 FIO2 45% WAS ABLE TO GIOVANNI SHORT BREAK ON 10 L/NC FOR ORAL CARE. MOIST NONPRODUCTIVE COUGH. PRECEDEX 0.6 MCG TO HELP PATIENT GIOVANNI BIPAP. CARDIZEM DRIP 5 MG FOR RATE CONTROL FOR AFIB. HEPARIN DRIP PER PHARMACY. NG IN PLACE WITH PIVIT 1.5 AT 10 CC/HR. ART LINE TO LEFT GROIN WITH GOOD WAVE FORM AND BOX WAVE. BOTH FEET WITH DUSKY COOL TOES WITH GOOD CAP REFILL.
[2020-10-08 03:43] LABS: Hematocrit 29.1 % (33.0-51.0); Mean Corpuscular HGB 30.2 pg (26.0-34.0); Mean Corpuscular HGB Conc 30.9 g/dL (31.5-36.5); Mean Corpuscular Volume 98 fL (80-100); Mean Platelet Volume 10.8 fL (9.1-12.4); Platelet Count 158 K/mm3 (150-400); RDW Coefficient Variation 16.9 % (11.7-14.2); RDW Standard Deviation 59.6 fL (35.1-46.3); Red Blood Cell Count 2.98 M/mm3 (3.80-5.20); White Blood Cell Count 15.86 K/mm3 (4.00-11.30)
[2020-10-08 04:01] LABS: Albumin, Blood 1.6 g/dL (3.4-5.0); Anion Gap 10 mmol/L (6-16); Blood Urea Nitrogen 114 mg/dL (8-24); Bun/Creatinine Ratio 40.4 (12.0-20.0); CO2, Blood 21 mmol/L (21-32); Calcium, Blood 7.2 mg/dL (8.5-10.1); Chloride, Blood 111 mmol/L (98-108); Creatinine, Blood 2.82 mg/dL (0.40-1.00); Glomerular Filtration Rate 18 (60-); Glucose, Blood 226 mg/dL (70-99); Phosphorus, Blood 5.8 mg/dL (2.5-4.9); Potassium, Blood 4.6 mmol/L (3.5-5.5); Sodium, Blood 142 mmol/L (136-145); Vancomycin, Random 29.2 ug/mL
[2020-10-08 04:04] LABS: BAND PERCENT MAN 1 % (0-8); BASOPHILS PERCENT MAN 0 % (0-2); EOSINOPHILS PERCENT MAN 0 % (0-6); LYMPHOCYTES ABSOLUTE MAN 0.15 K/mm3 (0.84-5.20); LYMPHOCYTES PERCENT MAN 1 % (21-46); MONOCYTES ABSOLUTE MAN 0.47 K/mm3 (0.16-1.47); MONOCYTES PERCENT MAN 3 % (4-13); NEUTROPHILS ABSOLUTE MAN 15.22 K/mm3 (1.96-9.15); SEG NEUTROPHILS PERCENT MAN 95 % (41-73); TOTAL CELLS COUNTED 100
--- NOTE | 2020-10-08 05:59 | NUR ---
SUMMARY PATIENT SLEEPING WITH BIPAP 10/5 FIO2 45% IN PLACE T/O NIGHT. TAKING SHORT BREAKS ON 10L/NC NIGHT HAS PROGRESSED PATIENT ABLE TO GIOVANNI BREAK BETTER. PATIENT NEEDING A LOT OF REASSURANCE TO HELP KEEP HER CALM WHILE OFF BIPAP. PRECEDEX 0.5 MCG CONTINUES TO HELP PATIENT GIOVANNI BIPAP. WHEN AWAKE AND OFF BIPAP HEART RATE UP TO 100'S CONTINUES WITH AFIB, CARDIZEM 5 MG DRIP CONTINUES FOR RATE CONTROL. HEPARIN DRIP CONTINUES PER PHARMACY, NO CHANGES TO RATE. NG REMAINS IN PLACE WITH PIVIT 1.5 RUNNING AT GOAL RATE OF 10 CC/HR. URINE OUT PUT IMPROVING T/O NIGHT, SEE I&O. ART LINE TO LEFT GROIN CONTINUES TO HAVE GOOD WAVEFORM. BOTH FEET CONTINUE TO BE COLD AND TOES ARE DUSKY PEDAL PULSES 1+ AND GOOD CAP REFILL.
--- NOTE | 2020-10-08 07:40 | NUR ---
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 THIS IS BELIEVED TO BE RELATED TO HER COVID VACCINE. NO PLANS TO MOVE PT OUT OF ICU ANY TIME SOON. -MARJAN
--- NOTE | 2020-10-08 09:36 | NUR ---
AM NOTE... PT REMAINS LIGHTLY SEDATE ON PRECEDEX GTT AT 0.5MCG. SHE IS EASILY AROUSED AND INQUIRING ABOUT "HOW AM I DOING". VS NOTED AND NIBP IS CORRILATING WITH A-LINE AND WILL INQUIRE TO CONTINUED NEED. POST TIB PULSE PER DOPPLER IS ABSENT AT THIS TIME BUT CAP REFILL AND COOLNESS IS EQUAL WITH ONLY VERY SL DUSKYNESS. PT WAS CHANGED TO AIRVO AT 55L AND 55% AND WILL FOLLOW WITH R.T. CARDIZEM AT 5MG, NS TKO, HEPARIN AT 7.5 U/K. AND 7.8 ML. TF REMAIN PIVOT AT RATE OF 10 AND PT SEEMS TO BE TOLERATING WELL. WILL CONT RESTRAINTS DUE TO ANXIETY AND FOR LINE SAFETY.
--- NOTE | 2020-10-08 10:02 | NUR ---
PT EXPERINECING INC. HR AND BP WITH ANXIETY AND LOWERING SATS. PT RETURNED TO BIPAP AT 10/5 AND 45% AND PRECEDEX GTT INC TO 0.8 MCG FOR NOW AND WILL FOLLOW.
--- NOTE | 2020-10-08 10:49 | NUR ---
PT IS RESTING WELL ON NEW PRECEDEX GTT SETTINGS AT 0.8 MCG AND BIPAP 10/5 AT 40%. HR AND BP ARE ALSO DOWN WNL.
--- NOTE | 2020-10-08 13:14 | NUR ---
WITH NOON VISIT, PT HAD SMALL AMOUNT OF MUCIOUS PASSED THAT WAS BLOODY. HOWEVER IT WAS UNCLEAR TO WEATHER IT WAS VAGINAL OR RECTAL DRAINAGE. PT WAS CLEANED UP AND NO FURTHER EVIDENCE WAS NOTED. WILL MONITOR.
--- NOTE | 2020-10-08 18:51 | NUR ---
PT HAS RESTED WELL THIS PM ON CURRENT PRECEDEX SETTING. CARDIZEM GTT WAS REMOVED NOTED. I/O NOTED. VS NOTED. PT REMAIINS ON BIPAP WITH 35%.
--- NOTE | 2020-10-08 19:45 | NUR ---
PATIENT AWAKE A&O BUT FORGETFUL, BIPAP IN PLACE 10/5 FIO2 35%. WHEN OFF BIPAP PLACED ON 10L/NC FOR ORAL CARE, PATIENT GIOVANNI WELL. REPEATING QUESTIONS OF "AM I DOING OK" AND "CAN I GO HOME" PRECEDEX AT 0.6 INFUSING TO HELP PATIENT GIOVANNI BIPAP. HEPARIN DRIP CONTINUES PER PHARMACY. OG REMAINS IN PLACE WITH PIVIT 1.5 AT GOAL RATE OF 25 CC/HR. CARDIZEM REMAINS OFF AFIB CONTINUES. ART LINE TO LEFT GROIN SHOWING GOOD WAVEFORM AND BOX WAVE.
--- NOTE | 2020-10-09 01:53 | NUR ---
WHEN OFF BIPAP PATIENT APPEARS MORE ANXIOUS, REPEATING SAME QUESTIONS DESPITE BEING ANSWERED AND ATTEMPT TO COMFORT AND REASSURE PATIENT. MAINTAINING BIOX OVER 91% BUT HEART RATE UP TO 120'S AND BP ELEVATED VIA ART LINE. PRECEDEX CONTINUES AT 0.7 MCG
[2020-10-09 03:03] LABS: Hematocrit 28.2 % (33.0-51.0); Hemoglobin 8.8 g/dL (11.5-16.0); Mean Corpuscular HGB 30.3 pg (26.0-34.0); Mean Corpuscular HGB Conc 31.2 g/dL (31.5-36.5); Mean Corpuscular Volume 97 fL (80-100); Mean Platelet Volume 11.1 fL (9.1-12.4); Platelet Count 167 K/mm3 (150-400); RDW Standard Deviation 59.3 fL (35.1-46.3); White Blood Cell Count 14.76 K/mm3 (4.00-11.30)
[2020-10-09 03:20] LABS: Magnesium, Blood 2.2 mg/dL (1.6-2.4); Phosphorus, Blood 5.7 mg/dL (2.5-4.9); Vancomycin, Random 23.7 ug/mL
[2020-10-09 03:22] LABS: Bun/Creatinine Ratio 45.8 (12.0-20.0); Calcium, Blood 7.3 mg/dL (8.5-10.1); Creatinine, Blood 2.49 mg/dL (0.40-1.00)
--- NOTE | 2020-10-09 06:38 | NUR ---
SUMMARY PATIENT SLEEPING WITH BIPAP IN PLACE MOST OF THE NIGHT AWAKENS TO SLIGHT STIMULI, CONFUSION CONTINUES, ASKING FREQUENTLY IF SHE CAN GO HOME AND IF SHE IS DOING BETTER. PATIENT FOLLOWING SIMPLE DIRECTIONS AND ASSISTING WITH REPOSITIONING IN BED, BUT FORGETFUL AND CONTINUES TO PULL ON LINES, CORDS, AND BIPAP. BILAT WRIST RESTRAINTS CONTINUE. PRECEDEX TITRATED TO 0.7 MCG TO HELP PATIENT GIOVANNI BIPAP. PATIENT ABLE TO GIOVANNI 10L/NC WHEN OFF BIPAP FOR SHORT BREAK, THEN RESP, HR, AND BP START ELEVATING. HEPARIN DRIP CONTINUES PER PHARMACY ORDERS. ART LINE TO LEFT GROIN HAVING GOOD WAVEFORM MOST OF THE NIGHT, BECOMING POSITIONAL EARLY THIS MORNING. NG REMAINS IN PLACE FOR TUBE FEEDING OF PIVOT 1.5 AT GOAL RATE OF 25 CC/HR T/O NIGHT.
--- NOTE | 2020-10-09 09:00 | NUR ---
ASSUMED CARE REPORT RECIEVED. PT IS LAYING IN BED WITH BIPAP IN PLACE. BIPAP SETTINGS 10/5, FIO2 35%. PT AWAKENS TO VERBAL STIMULI AND IS ABLE TO ANSWER SOME QUESTIONS APPROPRIATELY. PT IS CONFUSED AND FORGETFUL. PT NEEDS FREQUENT REASSURANCE ABOUT CONDITION AND PLAN OF CARE. VITAL SIGNS STABLE AT THIS TIME. ARTLINE IN PLACE TO LEFT FEMORAL SITE WITH GOOD WAVE FORM NOTED. DOBHOFF IN PLACE WITH TF AT 25 ML/HR GOAL. PICC TO NAM C/D/I. PRECEDEX INFUSING AT 0.7 MCG/KG/MIN, NS TKO, AND HEPARIN AT 9 UNITS/KG/HR. CHRISTIE TEMP PROBE IN PLACE DRAINING MINIMAL AMOUNT OF CLEAR YELLOW URINE OUTPUT. SBW RESTRAINTS IN PLACE. PT FEET ARE COOL AND DUSKY. WILL CONTINUE TO MONITOR.
[2020-10-09 12:37] LABS: Hematocrit 30.8 % (33.0-51.0); Hemoglobin 9.3 g/dL (11.5-16.0)
[2020-10-09 13:11] LABS: Stool Occult Blood Guaiac 1 Pos (Neg)
--- NOTE | 2020-10-09 15:21 | NUR ---
10/09/20- per chart review with Dr. Haq, pt is still on Bipap but is improving. No est. ETA for d/c at this time. -leigh
--- NOTE | 2020-10-09 18:10 | NUR ---
SHIFT SUMMARY NO ACUTE CHANGES THIS SHIFT. PT REMAINS BIPAP DEPENDENT ON 05/27, FIO2 35%. PT DID NOT TOLERATE SHORT BREAK FROM BIPAP WELL. PT WITH INCREASED RESPIRATORY EFFORT AND RR 40'S. PT REMAINS AFIB, HR GRADUALLY INCREASING THIS AM. PT RESTARTED ON CARDIZEM GTT. CARDIZEM INFUSING AT 10 MG/HR AT THIS TIME. PT SEDATED WITH PRECEDEX AT 0.9 MCG/KG/MIN. HEPARIN INFUSING AT 10 UNITS/KG/HR. PICC REMAINS C/D/I. DOBHOFF REMAINS IN PLACE WITH TF INFUSING AT 25 ML/HR GOAL RATE. ART LINE TO LEFT FEMORAL SITE REMAINS C/D/I. CHRISTIE TEMP PROBE IN PLACE WITH GOOD URINE OUTPUT THIS SHIFT, CLOUDY AND YELLOW IN APPEARANCE. PT WITH ONE BLACK BM THIS SHIFT AND INCREASING AMOUNT OF BLOOD NOTED WITH ORAL CARE/SUCTION. DR CARLSON AWARE. WILL CONTINUE TO MONITOR AND REPORT OFF TO ONCOMING RN.
--- NOTE | 2020-10-10 01:05 | NUR ---
ASSUMED PT CARE FROM RIGOBERTO SHELTON AT 1915 PT LYING IN BED; SEDATED ON PRECEDEX AT 0.9MCG/KG/HR; HOWEVER, PT STILL AROUSABLE TO VERBAL STIMULUS. ALERT TO SELF, SURROUNDINGS, AND ABLE TO FOLLOW COMMANDS. BIPAP 10/5; FIO2 35%; RESP RATE 30'S, BIOX >90%. LUNG SOUNDS ARE COARSE RHONCHI T/O WITH EXPIRATORY WHEEZES NOTED TO LEFT UPPER LOBE. PT REMAINS IN AFIB WITH RVR; HR 120-130'S WITH CARDIZEM GTT AT 10MG/HR; THEREFORE, INCREASED TO 15MG/HR. HEPARIN INFUSING AT 10 UNITS/KG/HR. PICC TO RIGHT UPPER ARM REMAINS CDI AND PATENT. DOBHOFF REMAINS INPLACE AND SECURED TO CHEEK; PIVOT 1.5 AT GOAL OF 25MLS/HR. TEMP CHRISTIE PROBE IS PATENT AND DRAINING CLOUDY, YELLOW URINE WITH SEDIMENT TO GRAVITY. SKIN BREAKDOWN NOTED TO NOSE; THEREFORE, PROTECTANT GEL PLACED AND COVERED WITH TEGADERM. PT ABLE TO TOLERATE 10L HI FLOW DURING BREAKS FROM BIPAP FOR ORAL CARES. PT CONTINUES TO HAVE BLOODY ORAL SECRETIONS NOTED DURING ORAL CARES; HOWEVER, THIS IS NOT NEW AND MD AWARE. BILATERAL FEET REMAIN DUSKY; HOWEVER, PEDIS PULSES ARE PALPABLE AND TIBIAL PULSES FOUND WITH DOPPLER.
[2020-10-10 04:06] LABS: Hematocrit 25.7 % (33.0-51.0); Hemoglobin 7.9 g/dL (11.5-16.0); Mean Corpuscular HGB 30.6 pg (26.0-34.0); Mean Corpuscular HGB Conc 30.7 g/dL (31.5-36.5); Mean Corpuscular Volume 100 fL (80-100); Mean Platelet Volume 10.6 fL (9.1-12.4); NRBC ABSOLUTE 0.06 K/mm3 (0.00-0.02); NRBC Auto 0.3 /100 WBC (0.0-0.2); Platelet Count 214 K/mm3 (150-400); RDW Coefficient Variation 17.5 % (11.7-14.2); RDW Standard Deviation 62.9 fL (35.1-46.3); Red Blood Cell Count 2.58 M/mm3 (3.80-5.20); White Blood Cell Count 19.08 K/mm3 (4.00-11.30)
[2020-10-10 04:31] LABS: Anion Gap 8 mmol/L (6-16); Blood Urea Nitrogen 126 mg/dL (8-24); Bun/Creatinine Ratio 59.4 (12.0-20.0); CO2, Blood 25 mmol/L (21-32); Calcium, Blood 7.6 mg/dL (8.5-10.1); Chloride, Blood 115 mmol/L (98-108); Creatinine, Blood 2.12 mg/dL (0.40-1.00); Glomerular Filtration Rate 24 (60-); Glucose, Blood 380 mg/dL (70-99); Magnesium, Blood 2.5 mg/dL (1.6-2.4); Phosphorus, Blood 5.5 mg/dL (2.5-4.9); Potassium, Blood 3.7 mmol/L (3.5-5.5); Sodium, Blood 148 mmol/L (136-145); Vancomycin, Random 20.2 ug/mL
--- NOTE | 2020-10-10 05:52 | NUR ---
END OF SHIFT SUMMARY PT REMAINS ON BIPAP; SETTINGS INCREASED T/O NIGHT D/T PT PULLING <250 TIDAL VOLUMES. BIPAP CURRENTLY AT 14/6; FIO2 55% WITH BIOX >90%. PRECEDEX DOWN TO 0.3 MCG/KG/HR D/T PT VERY SOMNOLENT AND ONLY RESPONSIVE TO PAINFUL STIMULI DURING MIDNIGHT REASSESSMENT. PT ABLE TO OPEN EYES AND FOLLOW COMMANDS AT 0.3 MCG/KG/HR CURRENTLY, AND SHE APPEARS COMFORTABLE. BILATERAL SOFT WRIST RESTRAINTS REMAIN IN PLACE TO PREVENT DISLODGEMENT OF DOBHOFF, WHICH HAS PIVOT 1.5 INFUSING AT GOAL OF 25MLS/HR. PT HAD ONE LARGE MELENOUS STOOL THIS SHIFT. TEMP CHRISTIE CATHETER IS PATENT AND DRAINING CLOUDY, LINETTE COLORED URINE WITH SEDIMENT NOTED TO GRAVITY. HEPARIN REMAINS AT 10 UNITS/KG/HR D/T SCATTERED BLOOD CLOTS TO BLE'S. PT REMAINS AFIB WITH RVR; HR 90-130'S; THEREFORE, CARDIZEM REMAINS AT 10MG/HR. BP'S STABLE, SEE FLOWSHEET. ARTERIAL LINE REMAINS IN PLACE AND PATENT TO LEFT FEMORAL SITE; LINE HAS BEEN ZEROED WITH GOOD WAVEFORM AND DICROTIC NOTCH. WILL CONTINUE TO MONITOR UNTIL REPORT IS HANDED OFF TO ONCOMING RN.
[2020-10-10 07:30] LABS: BASOPHILS PERCENT MAN 0 % (0-2); EOSINOPHILS PERCENT MAN 0 % (0-6); LYMPHOCYTES ABSOLUTE MAN 0.38 K/mm3 (0.84-5.20); LYMPHOCYTES PERCENT MAN 2 % (21-46); METAMYELOCYTE ABSOLUTE MAN 0.19 K/mm3 (0.00-0.00); METAMYELOCYTE PERCENT MAN 1 % (0-0); MONOCYTES ABSOLUTE MAN 1.14 K/mm3 (0.16-1.47); MONOCYTES PERCENT MAN 6 % (4-13); NEUTROPHILS ABSOLUTE MAN 17.36 K/mm3 (1.96-9.15); SEG NEUTROPHILS PERCENT MAN 91 % (41-73); TOTAL CELLS COUNTED 100
--- NOTE | 2020-10-10 08:00 | NUR ---
ASSUMED CARE REPORT RECIEVED. PT IS LAYING IN BED WITH BIPAP IN PLACE. BIPAP SETTINGS 14/6, FIO2 55%. PT RR 40'S AND LABORED. VITAL SIGNS STABLE. CARDIZEM AT 10 MG/HR. PT IS ABLE TO SQUEEZE HANDS UPON COMMAND, BUT IS CONFUSED AND SOMNOLENT. PT SEDATED WITH PRECEDEX AT 0.5 MCG/KG/HR. PICC TO NAM C/D/I. ARTLINE TO LEFT FEMORAL SITE C/D/I. DOBOHOFF IN PLACE WITH TF INFUSING AT 25 ML/HR GOAL RATE. SOME BLOOD STREAKS NOTED WITH ORAL CARE. PT WITH INCONTINENT LIQUID BLACK STOOL. RECTAL TUBE PLACED AT THIS TIME. CHRISTIE TEMP PROBE REMAINS IN PLACE WITH CLOUDY YELLOW OUTPUT NOTED. SBW RESTRAINTS IN PLACE. WILL CONTINUE TO MONITOR.
[2020-10-10 09:31] LABS: PCO2 Arterial 51.8 mmHg (35-45); PO2 Arterial 78.5 mmHg (80-100); pH Blood Arterial 7.27 (7.35-7.45)
[2020-10-10 09:47] LABS: Hematocrit 24.9 % (33.0-51.0); Hemoglobin 7.3 g/dL (11.5-16.0)
--- NOTE | 2020-10-10 12:45 | NUR ---
10/10/20- per chart review with Dr. Haq, pt's health has decreased since yesterday and she may need to be intubated. No est ETA of d/c.-leigh
[2020-10-10 14:30] LABS: Hematocrit 24.5 % (33.0-51.0); Hemoglobin 7.3 g/dL (11.5-16.0)
--- NOTE | 2020-10-10 14:39 | NUR ---
Rec'd an update on pt's status from nursing. Nursing reports pt has a GI bleed and is bipap dependent at this time. Nursing reports since caring for Leonela over this past weekend and now today that her condition has worsened. Dr. Howard spoke with Leonela's dtr this afternoon. Per Dr. Howard, Leonela's dtr wishes for her mom to remain a full code and to be intubated if needed at this time. PC will remain available to support Leonela and her dtr and to assist with advanced care planning as needed.
[2020-10-10 14:49] LABS: Bun/Creatinine Ratio 64.2 (12.0-20.0); Calcium, Blood 7.9 mg/dL (8.5-10.1); Creatinine, Blood 2.04 mg/dL (0.40-1.00); Potassium, Blood 3.6 mmol/L (3.5-5.5)
--- NOTE | 2020-10-10 16:37 | NUR ---
SHIFT SUMMARY NO ACUTE CHANGES THIS SHIFT. PT REMAINS BIPAP DEPENDENT. BIPAP 14/6, FIO2 55%. PT REMAINS FORGETFUL AND CONFUSED. PT WITH PERIODS OF RESTLESSNESS. PRECEDEX OFF MOST OF THE DAY DUE TO SOMNOLENCE. PRECEDEX RESTARTED AT 0.3 MCG/KG/HR THIS AFTERNOON. VITAL SIGNS HAVE REMAINED STABLE. PT REMAINS IN AFIB WITH HR 90-130'S. CARDIZEM INFUSING AT 7.5 MG/HR. PICC TO NAM REMAINS C/D/I. DOBHOFF REMAINS IN PLACE WITH TF INFUSING AT 30 ML/HR GOAL RATE. FREE WATER FLUSH INCRESED PER DR CARLSON. ARTLINE TO LEFT FEMORAL SITE REMAINS C/D/I. PT CONTINUES TO HAVE LIQUID BLACK STOOL IN RECTAL TUBE. DR CARLSON AWARE OF RECHECK H/H. CHRISTIE TEMP PROBE REMAINS IN PLACE WITH CLOUDY YELLOW URINE OUTPUT. SBW RESTRAINTS REMAIN IN PLACE. WILL CONTINUE TO MONITOR AND REPORT OFF TO ONCOMING RN.
--- NOTE | 2020-10-10 20:00 | NUR ---
ASSUMED CARE OF PT AT 1915. REPORT RECEIVED. PT PRESENTS IN BED WEARING BIPAP. PT MAINTAINS > 90 PERCENT SATURATION WITH CURRENT SETTINGS. 14/6 FIO2 55%. PT EASILY AGGITATED WITH CARE OR TACTILE. ATTEMPTS TO PULL OFF BIPAP. SOFT WRIST RESTRAINTS IN PLACE. VERBAL ATTEMPTS TO ORIENT PT DONE. WILL REVIEW CHART AND PLAN OF CARE FOR THIS PT.
--- NOTE | 2020-10-10 23:00 | NUR ---
PT TOLERATES Q 2 HOUR TURNS FAIR. ORAL CARE DONE WHICH DEMONSTRATES A VERY DRIED MUC[place]. ORAL MOISTURIZER USE. WAS ABLE TO REMOVE SMALL DARK CAST FROM ROOF OF MOUTH. WILL CONTINUE TO DO GOOD ORAL CARE. PT CONTINUES ON CARDIZEM AT 7.5 MG PER HOUR. HEART RATES AVERAGE IN 95-120'S. WILL CONSIDER IF NEEDING TO TITRATE UP. REMAINS IN AFIB WITH RVR. WILL CONTINUE TO MONITOR.
--- NOTE | 2020-10-11 02:21 | NUR ---
PT RESTING IN BED AT THIS TIME. CARDIZEM CONTINUES AT 7.5 MG/HOUR. PRECEDEX AT 4 MCG'S/KG/HOUR. HAS REMAINED ON BIPAP WITH UNCHANGED SETTINGS GAL PRIOR. MAINTAINS WITH SATURATIONS > 90 PERCENT. WILL CONTINUE TO MONITOR PT.
[2020-10-11 04:01] LABS: BASOPHILS ABSOLUTE AUTO 0.02 K/mm3 (0.00-0.23); BASOPHILS PERCENT AUTO 0 % (0-2); Hematocrit 24.6 % (33.0-51.0); Hemoglobin 7.2 g/dL (11.5-16.0); LYMPHOCYTES ABSOLUTE AUTO 0.71 K/mm3 (0.84-5.20); LYMPHOCYTES PERCENT AUTO 3 % (21-46); MONOCYTES PERCENT AUTO 2 % (4-13); Mean Corpuscular HGB 30.4 pg (26.0-34.0); Mean Corpuscular HGB Conc 29.3 g/dL (31.5-36.5); Mean Corpuscular Volume 104 fL (80-100); Mean Platelet Volume 10.9 fL (9.1-12.4); NRBC ABSOLUTE 0.18 K/mm3 (0.00-0.02); NRBC Auto 0.7 /100 WBC (0.0-0.2); Platelet Count 241 K/mm3 (150-400); RDW Standard Deviation 66.2 fL (35.1-46.3); Red Blood Cell Count 2.37 M/mm3 (3.80-5.20); White Blood Cell Count 25.29 K/mm3 (4.00-11.30)
[2020-10-11 04:04] LABS: EOSINOPHILS PERCENT AUTO 0 % (0-6); IMMATURE GRAN ABSOLUTE AUTO 0.53 K/mm3 (0.00-0.10); IMMATURE GRAN PERCENT AUTO 2 % (0-1); NEUTROPHILS ABSOLUTE AUTO 23.43 K/mm3 (1.96-9.15); NEUTROPHILS PERCENT AUTO 93 % (41-73)
[2020-10-11 04:20] LABS: Albumin, Blood 1.9 g/dL (3.4-5.0); Anion Gap 7 mmol/L (6-16); Blood Urea Nitrogen 138 mg/dL (8-24); CO2, Blood 25 mmol/L (21-32); Calcium, Blood 7.8 mg/dL (8.5-10.1); Chloride, Blood 118 mmol/L (98-108); Glomerular Filtration Rate 22 (60-); Glucose, Blood 278 mg/dL (70-99); Magnesium, Blood 2.7 mg/dL (1.6-2.4); Phosphorus, Blood 6.4 mg/dL (2.5-4.9); Potassium, Blood 3.6 mmol/L (3.5-5.5); Sodium, Blood 150 mmol/L (136-145); Vancomycin, Random 18.2 ug/mL
[2020-10-11 05:20] LABS: PO2 Arterial 77.3 mmHg (80-100); pH Blood Arterial 7.06 (7.35-7.45)
[2020-10-11 05:21] LABS: PCO2 Arterial 81.9 mmHg (35-45)
--- NOTE | 2020-10-11 06:30 | NUR ---
PT BECOMES RESTLESS AND ATTEMPTING TO PULL AT LINES AND RESTRAINTS. IS NOT REDIRECTABLE. OPTED TO ADMINISTER 25 MCG FENTANYL FOR COMFORT. PT DOES NOT TOLERATE FENTANYL. HAS VERY DIMINISHED TIDAL VOLUMES IN 100-200 RANGE. NEEDS TO BE PROMTED TO TAKE DEEPER BREATHS. ADMINISTERED 0.2 MG NARCAN WITH A FOLLOWUP DOSE OF 0.2MG WITH IMPROVED TIDAL VOLUMES. SEVERAL CALLS THIS MORNING TO DR CARLSON WITH UPDATES. ORDERS RECEIVED. CRITICAL ABG RESULTS GIVEN. BLOOD PRESSURES HAVE BEEN BECOMING HYPOTENSIVE, REQUIRING RESTARTING OF LEVOPHED DRIP. PLACED PRECEDEX ON STANDBY AT TIME OF GIVING FENTANYL. PT CONTINUES IN AFIB WITH RVR. CARDIZEM AT 10MG PER HOUR. WILL CONTINUE TO MONITOR PT, AND WILL REPORT OFF TO ONCOMING RN.
[2020-10-11 07:17] LABS: PCO2 Arterial 73.3 mmHg (35-45)
--- NOTE | 2020-10-11 08:30 | NUR ---
ASSUMED CARE RECEIVED REPORT FROM RIGOBERTO KYLE. PT IS SOMNOLENT ON BIPAP 18/6, 55% FIO2. CURRENT GTTPs: CARDIZEM 10 MG/HR, LEVOPHED 7 MCG/MIN, AND NS TKO. PT IS IN AFIB RVR, RATE 100-130; LEFT FEMORAL ART LINE - SITE LOOKS CDI, WAVEFORM HAS DICROTIC NOTCH, MAP > 60, DBP 35-40s. SPO2 93-95%. TIDAL VOLUMES WITH BIPAP ARE GENERALLY IN THE 300s mL, RR 25-33. PT HAS PATENT CHRISTIE DRAINING LIGHT YELLOW URINE, AND HAS A RECTAL TUBE DRAINING A VERY DARK BROWN, ALMOST BLACK, LIQUID STOOL - DOES NOT APPEAR TARRY - WATERY IN CONSISTENCY. SWB RESTRAINTS SECURED TO PT AND BED. BED LOW AND LOCKED.
--- NOTE | 2020-10-11 10:58 | NUR ---
Case confrence with ICu team and review of pt care needs. Pt declining and need increased support and intubation. Pt daughter notified of decline and is ok with intubation feels her mother would want it. Will continue supportive interacations with daughter and help her with decision making. pt pronosis is poor.
--- NOTE | 2020-10-11 13:00 | NUR ---
INTUBATION/UPDATE PT INTUBATED AT 1109 WITH 7.5 ETT, XRAY CONFIRMED PLACEMENT, DR. NELSON INSTRUCTED RT JOSEPH TO WITHDRAW ETT 2CM, SO IT IS 23 AT THE GUMS. VENTILATOR SETTINGS: AC14/350/8/100. PT WAS SEDATED FOR RSI WITH 5 MG VERSED, AND 50 MG OF PROPOFOL. PT NOT RESPONDING WITH SEDATION. PROPOFOL INITIALLY LEFT OFF, BUT PT STARTED TO MOVE HEAD SLIGHTLY, AND HR INCREASED - PROPOFOL INFUSING AT 10 MCG/KG/MIN. VASOPRESSIN INFUSING 0.04 UNITS/MIN, AND LEVOPHED INFUSING AT 20 MCG/MIN. ART LINE SHOWING ADEQUATE WAVE FORM WITH DICROTIC NOTCH SHOWING MAPS > 60. CARDIZEM UP TO 15 MG/HR, PT CONTINUES TO BE IN RVR WITH HER AFIB (SEE VS FOR EXACT RANGES). WILL CONTINUE TO MONITOR.
[2020-10-11 13:43] LABS: PO2 Arterial 58.4 mmHg (80-100)
[2020-10-11 14:08] LABS: Hematocrit 19.7 % (33.0-51.0)
[2020-10-11 14:10] LABS: Hemoglobin 5.9 g/dL (11.5-16.0)
[2020-10-11 16:56] LABS: PCO2 Arterial 39.3 mmHg (35-45); PO2 Arterial 64.9 mmHg (80-100); pH Blood Arterial 7.32 (7.35-7.45)
--- NOTE | 2020-10-11 19:44 | NUR ---
END OF SHIFT PT ON VENTILATOR AC 18/350/8/40%, CURRENT GTTPs: PROPOFOL 25 ML/HR, LEVOPHED 8 MCG/MIN, D5W 75 ML/HR, BICARB 75 ML/HR, CARDIZEM 15 MG/HR, WITH ZOSYN TEMPORARILY INFUSING PB OFF BICARB. 1 UNIT OF PRBCs IS ALSO INFUSING. ALBUMIN BOTTLES 2 AND 3 HAVE NOT INFUSED, AND HAVE BEEN DELAYED DUE TO LIMITED ACCESS. REPORTED TO NOC RN TO START ALBUMIN ONCE THE PRBCs HAVE FINISHED INFUSING. THE H/H AT 1800 HAD BEEN RESCHEDULED TO ~2000 TO ACCOMODATE FOR THE TOTAL INFUSION OF THE BLOOD. DR. VALLEJO WILL WANT TO BE NOTIFIED OF THE HEMOGLOBIN - NURSE NOTIFY INPUTTED. DR. VALLEJO HAD SEEN PT AND WAS UPDATED ON TODAY's EVENTS, PLANS TO DO A POTENTIAL SCOPE TOMORROW DUE TO THE POTENTIAL GI BLEEDING GOING ON, 800 ML OF WATERY-BLACK LIQUID STOOL FROM RECTAL TUBE COLLECTED. SOME BLOOD CLOTS SUCTIONED FROM OROPHARYNX DURING INTUBATION. PT IS QUITE EDEMATOUS ALL OVER, DUSKY IN HER HANDS AND FEET. PALPABLE PULSES IN HER RADIAL ARTERIES, AND HER LLE-PEDAL IS DOPPABLE, BUT HER RLE-PEDAL WAS NOT DOPPABLE INITIALLY, BUT AT THE END OF THE SHIFT IT IS VERY FAINTLY HEARD ON DOPPLER. PT HAS HAD ALMOST 3L OF INTAKE OF FLUIDS, WITH ONLY 125 ML OF URINE OUTPUT; DR. NELSON IS AWARE OF OLIGURIA. 1/3 BOTTLES OF ALBUMIN HAVE INFUSED TODAY. ART LINE SITE IS CDI, WAVEFORMS HAVE DICROTIC NOTCH, AND SQUARE WAVE TEST SHOWS A PROPER RESPONSE NOT UNDER OR OVER DAMPENED. MAP > 60. DBP HAVE BEEN LOW 30-50s, SBP 90-140s. PT CONTINUES TO BE IN AFIB RVR, RATE HAS BEEN BETTER CONTROLLED AT THE END OF THE SHIFT RATE 90-115 (120-150s FOR MAJORITY OF THE DAY). LEVO HAD TITRATED DOWN, AND CARDIZEM TITRATED UP THE RATE HAD FINALLY DECREASED TO A MORE ACCEPTABLE RANGE. CASSIDY G FROM PALLIATIVE CARE HAS BEEN IN CONTACT WITH FAMILY DISCUSSING THE PLAN OF CARE AND ANY UPDATES T/O THE SHIFT. BED LOW AND LOCKED. PT HAS MINIMAL RESPONSIVENESS, OCCASSIONALLY MOVING HEAD, BUT NOT ANY OF HER EXTREMITIES OR TORSO. WILL SOMETIMES RAISE HER EYEBROWS (NOT OPEN EYES) WHEN HER NAME IS SAID LOUDLY, BUT NOTHING MEANINGFULL AFTER THAT. REPORTED OFF TO RIGOBERTO KYLE.
[2020-10-11 21:21] LABS: Hematocrit 20.7 % (33.0-51.0); Hemoglobin 6.5 g/dL (11.5-16.0)
[2020-10-12 02:56] LABS: BASOPHILS ABSOLUTE AUTO 0.01 K/mm3 (0.00-0.23); BASOPHILS PERCENT AUTO 0 % (0-2); EOSINOPHILS PERCENT AUTO 0 % (0-6); Hematocrit 22.3 % (33.0-51.0); Hemoglobin 7.1 g/dL (11.5-16.0); IMMATURE GRAN PERCENT AUTO 2 % (0-1); LYMPHOCYTES ABSOLUTE AUTO 0.38 K/mm3 (0.84-5.20); LYMPHOCYTES PERCENT AUTO 3 % (21-46); MONOCYTES ABSOLUTE AUTO 0.33 K/mm3 (0.16-1.47); MONOCYTES PERCENT AUTO 3 % (4-13); Mean Corpuscular HGB 30.9 pg (26.0-34.0); Mean Corpuscular HGB Conc 31.8 g/dL (31.5-36.5); Mean Platelet Volume 11.6 fL (9.1-12.4); NEUTROPHILS ABSOLUTE AUTO 12.41 K/mm3 (1.96-9.15); NEUTROPHILS PERCENT AUTO 93 % (41-73); NRBC ABSOLUTE 0.14 K/mm3 (0.00-0.02); NRBC Auto 1.1 /100 WBC (0.0-0.2); Platelet Count 112 K/mm3 (150-400); RDW Coefficient Variation 17.4 % (11.7-14.2); RDW Standard Deviation 58.4 fL (35.1-46.3); White Blood Cell Count 13.33 K/mm3 (4.00-11.30)
[2020-10-12 03:09] LABS: Mean Corpuscular Volume 97 fL (80-100)
[2020-10-12 03:16] LABS: Albumin, Blood 2.5 g/dL (3.4-5.0); Anion Gap 14 mmol/L (6-16); Blood Urea Nitrogen 134 mg/dL (8-24); Bun/Creatinine Ratio 60.4 (12.0-20.0); CO2, Blood 21 mmol/L (21-32); Calcium, Blood 6.9 mg/dL (8.5-10.1); Chloride, Blood 110 mmol/L (98-108); Creatinine, Blood 2.22 mg/dL (0.40-1.00); Glomerular Filtration Rate 23 (60-); Glucose, Blood 438 mg/dL (70-99); Potassium, Blood 3.1 mmol/L (3.5-5.5); Sodium, Blood 145 mmol/L (136-145); Vancomycin, Random 15.6 ug/mL
--- NOTE | 2020-10-12 06:13 | NUR ---
PT HAS CONTINUE TO MAINTAIN > 90 PERCENT SATURATION WITH VENT. UNFORTUNATELY, PT'S ART LINE BECOMES OCCLUDED, AND NEEDED TO BE PULLED. THIS DONE WITH MANUAL HOLD FOR 20 MINUTES. HAS REMAINED WITHOUT HEMATOMA OR OOZING. KENYETTA DRESSING USED. HAVE BEEN ABLE TO USE NON INVASIVE BLOOD PRESSURE MONITORING. HAVE BEEN ABLE TO TITRAT LEVOPHED DOWN TO 1 MCG. CARDIZEM DRIP TO 5 MG PER HOUR. HEART RATE REMAINS 90-110. A-FIB. CONTINUES ON TUBE FEED WITH NEPRO AT GOAL. TOLERATING THIS WELL. PT CONTINUES WITH DARK COLORED ORAL SECRETIONS THAT HAVE IMPROVED SOME WTIH FREQUENT ORAL CARE THIS NIGHT. NO PIERCE BLOOD NOTED. HAS RECEIVED 2 UNITS PRBC'S. WILL HAVE ANOTHER H/H DRAWN THIS AM AT 0700. WILL CONTINUE TO MONITOR PT, AND WILL REPORT OFF TO ONCOMING RN.
--- NOTE | 2020-10-12 07:50 | NUR ---
ASSUMED CARE RECEIVED REPORT FROM RIGOBERTO KYLE. PT LYING IN BED INTUBATED AND SEDATED, ON MECHANICAL VENTILATION, VENT SETTINGS: AC 18/350/8/35%; 7.5 ETT 23 AT [facility]. CURRENT GTTPs: D5W AT 25 ML/HR, SODIUM BICARB AT 75 ML/HR, PROPOFOL AT 25 MCG/KG/MIN, & CARDIZEM AT 5 MG/HR. PER NOC RN, HE DID NOT EMPTY CHRISTIE ALL NIGHT, IT IS PATENT, BUT ONLY A MINISCULE AMOUNT OF URINE IN THE BAG. PT HAS RECTAL TUBE DRAINING LIQUID-DARK BROWN/BLACK WATERY STOOL. BED LOW AND LOCKED. AFIB RVR 80-120s. MAP STABLE, > 60; AND SPO2 94%.
[2020-10-12 08:13] LABS: Hematocrit 23.5 % (33.0-51.0); Hemoglobin 7.5 g/dL (11.5-16.0)
--- NOTE | 2020-10-12 08:39 | NUR ---
UPDATE AFTER REARRANGING IV GTTPS TO ENSURE COMPATABILLITY (ADDED ZOSYN, KCL, VANCO), PT MAY HAVE HAD A PAUSE IN RECEIVING CARDIZEM, SO IT WAS TITRATED UP TO 10 MG/HR AT 0820, RATE HAD INCREASED TO 115-140s. WILL CONTINUE TO MONITOR AND TITRATED NEEDED. BLOOD PRESSURE HAS INCREASED, LAST BP 144/65, 90. D5W REMAINS AT 25 ML/HR. BLOOD GLUCOSE IN 490s WILL ADDRESS WITH DR. NELSON THIS MORNING.
--- NOTE | 2020-10-12 10:36 | NUR ---
PT PREOPED IN ICU 11. PT INTUBATED. JOSI, SPECIAL SERVICES DIRECTOR HELPING MANAGE. History, Chart, Medications and Allergies reviewed before start of procedure. Patient confirms NPO status and agrees with scheduled surgery.
--- NOTE | 2020-10-12 12:00 | NUR ---
UPDATE/ENDOSCOPY PER YONI AND DAY SURGERY TEAM - NO ACTIVE BLEEDING IN UPPER GI TRACT. DURING PROCEDURE PROPOFOL WAS TITRATED HIGH 45 MCG/KG/MIN AND AFTERWARDS WAS TITRATED BACK DOWN TO 25 MCG/KG/MIN. PT MAINTAINED MAP > 65, AND HER HR STAYED IN THE 90-115 RANGE. THIS AM THE PT HAD A SUGAR IN THE 490s, AND CURRENTLY HAS A SUGAR > 500. STAT GLUCOSE WAS SENT, LESLIE NOTIFIED, AND IS PUTTING IN FOR A INSULIN GTTP. WILL CONTINUE TO MONITOR/REASSESS.
[2020-10-12 12:33] LABS: Hematocrit 22.5 % (33.0-51.0); Hemoglobin 7.2 g/dL (11.5-16.0)
[2020-10-12 12:53] LABS: Glucose, Blood 517 mg/dL (70-99)
--- NOTE | 2020-10-12 15:20 | NUR ---
ASSUMED CARE PT TO ICU VIA STRETCHER, ALERT & ORIENTED X 4. INSULILN GTTP: 4 UNITS/HOUR, NS INFUSING 200ML/HR, AND NS WITH 20 MEQ KCL INFUSING 100 ML/HR. PT C/O SORE THROAT AND DIFFICULTY BREATHING. SINUS TACH RATE 120-130s. STABLE BP, SPO2, AND AFEBRILE. RR IN THE LOW 20s. CALL LIGHT WITHIN REACH. BED LOW AND LOCKED.
[2020-10-12 16:15] LABS: Hematocrit 22.3 % (33.0-51.0); Hemoglobin 7.3 g/dL (11.5-16.0)
--- NOTE | 2020-10-12 19:02 | NUR ---
END OF SHIFT ONLY MAJOR CHANGE FROM PREVIOUS NOTE IS THE ADDITION OF THE INSULIN GTTP. BLOOD GLUCOSE AT NOON HAD READ HIGH AT NOON, AND A STAT GLUCOSE WAS SENT AND HAD CAME BACK 517. INSULIN ORDERED TO START AT 0.05 UNITS/KG/HOUR, ADMIT WEIGHT = 52 KG, INITIAL DOSE: 2.6 UNITS/HOUR. CURRENTLY, INSULIN IS INFUSING AT 5 UNITS/HOUR, LAST CBG = 466. SODIUM BICARB INFUSING AT 75 ML/HR; PROPOFOL AT 15 MCG/KG/MIN; CARDIZEM AT 10 MG/HOUR. < 10 ML OF URINE OUTPUT, UNABLE TO MEASURE ANYTHING FROM CHRISTIE. RECTAL TUBE HAD 200 ML OF DARK BROWN/BLACK LIQUID STOOL. PT CONTINUES TO BE IN AFIB RATE 90-120s. STABLE BP, MAP > 60. SPO2 94% -- PT INTUBATED ON VENT AC 18/350/8/35%. PT RESPONDS TO NOXIOUS STIMULI - BUT NOTHING PURPOSEFUL, OR INTENTIONAL. DOES NOT FOLLOW COMMANDS. GRIMACES TO ORAL CARE. OG TUBE PLACED AT 1830, CXR ORDERED TO CONFIRM PLACEMENT. OG SECURED TO ETT AND IS SECURE IN ITS PLACE. BED LOW AND LOCKED.
--- NOTE | 2020-10-12 20:00 | NUR ---
ASSUMED CARE OF PT AT 1915. REPORT RECEIVED. PT PRESENTS IN BED. VENTED - AC 18, 350, 35 PERCENT FIO2, PEEP 8. CONTINUES ON INSULIN DRIP WHICH HAS BEEN INCREASED TO 9 UNITS PER HOUR. SEE CPOT FLOWSHEET FOR GLUCOSE VALUES.
[2020-10-12 20:29] LABS: Hematocrit 23.1 % (33.0-51.0); Hemoglobin 7.6 g/dL (11.5-16.0)
[2020-10-12 21:59] LABS: Hematocrit 22.9 % (33.0-51.0); Hemoglobin 7.6 g/dL (11.5-16.0)
--- NOTE | 2020-10-12 23:00 | NUR ---
PT HAS NOT HAD MUCH SECRETIONS FROM ETT. CONTINUES ON INSULIN DRIP. HOURLY BLOOD GLUCOSE CHECKS. DILTIZEM AT 5 MG/HOUR. HEART RATE REMAINS AT AVERAGE NEAR 100 BPM'S. AFIB WITH PVC'S. BEDBATH COMPLETED.
[2020-10-13 03:39] LABS: BASOPHILS ABSOLUTE AUTO 0.01 K/mm3 (0.00-0.23); BASOPHILS PERCENT AUTO 0 % (0-2); EOSINOPHILS PERCENT AUTO 0 % (0-6); Hematocrit 22.4 % (33.0-51.0); Hemoglobin 7.2 g/dL (11.5-16.0); IMMATURE GRAN ABSOLUTE AUTO 0.29 K/mm3 (0.00-0.10); IMMATURE GRAN PERCENT AUTO 2 % (0-1); LYMPHOCYTES ABSOLUTE AUTO 0.34 K/mm3 (0.84-5.20); LYMPHOCYTES PERCENT AUTO 2 % (21-46); MONOCYTES ABSOLUTE AUTO 0.42 K/mm3 (0.16-1.47); MONOCYTES PERCENT AUTO 2 % (4-13); Mean Corpuscular HGB 30.1 pg (26.0-34.0); Mean Corpuscular HGB Conc 32.1 g/dL (31.5-36.5); Mean Corpuscular Volume 94 fL (80-100); Mean Platelet Volume 11.5 fL (9.1-12.4); NEUTROPHILS ABSOLUTE AUTO 16.99 K/mm3 (1.96-9.15); NEUTROPHILS PERCENT AUTO 94 % (41-73); NRBC ABSOLUTE 0.13 K/mm3 (0.00-0.02); NRBC Auto 0.7 /100 WBC (0.0-0.2); Platelet Count 123 K/mm3 (150-400); RDW Coefficient Variation 17.8 % (11.7-14.2); RDW Standard Deviation 57.1 fL (35.1-46.3); Red Blood Cell Count 2.39 M/mm3 (3.80-5.20); White Blood Cell Count 18.05 K/mm3 (4.00-11.30)
[2020-10-13 04:00] LABS: Albumin, Blood 2.2 g/dL (3.4-5.0); Anion Gap 12 mmol/L (6-16); Blood Urea Nitrogen 131 mg/dL (8-24); Bun/Creatinine Ratio 57.7 (12.0-20.0); CO2, Blood 24 mmol/L (21-32); Calcium, Blood 7.1 mg/dL (8.5-10.1); Chloride, Blood 108 mmol/L (98-108); Creatinine, Blood 2.27 mg/dL (0.40-1.00); Glomerular Filtration Rate 23 (60-); Glucose, Blood 257 mg/dL (70-99); Potassium, Blood 2.9 mmol/L (3.5-5.5); Sodium, Blood 144 mmol/L (136-145); Vancomycin, Random 23.1 ug/mL
--- NOTE | 2020-10-13 04:30 | NUR ---
LAB VALUES RETURN REVEALING POTASSIUM AT 2.9 ORDER FOR POTASSIUM ORDERS PLACED. HAVE HELD TUBE FEEDING WHILE PT'S GLUCOSE LEVELS HAVE BEEN ELEVATED AND HIGH RATE FOR INSULIN DRIP. DR NELSON AGREED WITH THIS PLAN DURING EVENING CONVERSATION. WILL CONTINUE TO MONITOR PT.
--- NOTE | 2020-10-13 06:30 | NUR ---
PT HAS HAD A DECREASE IN SECRETIONS THIS SHIFT. VERY MINIMAL BLOOD TINGING. PT DOES HAVE PERIOD OF TIME WHEREAS SHE BECOMES HYOTHERMIC. 95.5. AFTER ATTEMPTS TO WARM PT, PLACE BEAR HUGGER. PT SUBSEQUENTLY IMPROVED. CURRENTLY BEAR HUGGER HAS BEEN OFF. TEMP CURRENT AT 98.6. PT'S INSULIN AT 16 UNITS / HOUR. WILL CONTINUE TO MONITOR PT, AND WILL REPORT OFF TO ONCOMING RN.
--- NOTE | 2020-10-13 08:02 | NUR ---
ASSUMED CARE RECEIVED REPORT FROM RIGOBERTO KYLE. PT INTUBATED WITH 7.5 ETT 23 AT [facility], VENT SETTINGS ARE AC18/350/8/35%, CURRENT GTTPS: PROPOFOL 25 MCG/KG/MIN, CARDIZEM 10 MG/HR, BICARB 75 ML/HR, INSULIN AT START OF SHIFT 16 UNITS/HOUR - BUT IS NOW TITRATED AT 8 UNITS/HOUR DUE TO A SUGAR OF 135 DROPPING FROM 177 IN LESS THAN 1 HOUR; AND 20 MEQ OF KCL INFUSING CURRENTLY. CHRISTIE AND RECTAL TUBE PATENT, CHRISTIE HAS MINISCULE AMOUNT OF URINE, RECTAL TUBE HAS LIQUID BLACK STOOL. AFIB RVR RATE IS 130-140s. WILL TITRATE CARDIZEM UP TO 12.5 NOW (AT 0802). BED LOW AND LOCKED.
--- NOTE | 2020-10-13 08:30 | NUR ---
UPDATE/TOES THE FEET AND HANDS CONTINUE TO BE DUSKY, BUT THE TIPS OF THE TOES APPEAR TO BE CYANOTIC. DOPPLER TO PEDAL PULSES ONLY CHEMICAL BLENDER A FAINT PULSE. THE RIGHT PEDAL PULSE IS SOMETIMES NOT ABLE TO BE HEARD THROUGH THE DOPPLER. DR NELSON IS AWARE. WITH HIGH RISK OF BLEEDING, ANTICOAGULATION VIA HEPARIN GTTP WAS NOT ADVISED.
--- NOTE | 2020-10-13 08:58 | NUR ---
ORAL CARE/SUCTIONING TUBING/CANNISTER CHANGED, NEW VAP KIT IN ROOM
--- NOTE | 2020-10-13 11:54 | NUR ---
UPDATE INSULIN GTTP WAS TURNED OFF AT 0945, SUGAR DROPPED FROM 123 TO 119. TF IS BEING RESTARTED AT 15 ML/HR (FOR NOW) WITH Q4H [address] NELSON AWARE, AND HAS INSTRUCTED TO CHECK SUGARS Q6H, THAT HE MAY INCREASE THE SEMGLEE/LONG ACTING, AND DEPENDING ON WHAT THE SUGARS DO - HE WILL CONSIDER ORDERING Q6H SLIDING SCALE INSULIN SC TO CONTROL BLOOD SUGARS. BICARBONATE GTTP IS BEING DECREASED TO 50 ML/HR FOR THE TIME BEING. PROPOFOL IS DOWN TO 10 MCG/KG/MIN. THE ORDER PACKER HAS BEEN NOTIFIED, ALONG WITH DR. NELSON REGARDING THE PLAN FOR NUTRITION GOING FORWARD THOUGH THE OG TUBE. RESIDUALS WILL BE CHECKED Q4H. DR. SUAZO HAS COME BY AND DISCUSSED PLAN OF CAR WITH THIS RN. LAKEISHA WILL BE ORDERING A POTASSIUM LAB DRAW AFTER THE LAST BAG OF KCL HAS FULLY INFUSED (AND IS CURRENTLY DONE INFUSING). WILL CONTINUE TO MONITOR.
--- NOTE | 2020-10-13 16:25 | NUR ---
SEDATION VACATION PROPOFOL PLACED ON STANDBY AT 1215. AT FIRST PT JUST CONTINUED TO MOVE HER HEAD SLIGHTLY LIKE SHE HAD BEEN DOING ALL DAY. EVENTUALLY (AROUND [phone]) PT WOKE UP MORE, SHE WAS ABLE TO FOLLOW BASIC COMMANDS: OPENING HER EYES, SQUEEZING MY HAND WITH HER RIGHT HAND, AND WIGGLING HER RIGHT FOOT. SHE ALSO WAS NONPURPOSEFULLY MOVING HER RIGHT ARM OCCASSIONALLY, ONLY GROSS MOVEMENT ON RIGHT SIDE, NO MOVEMENT SEEN ON LEFT SIDE YET. NO FACIAL DROOP. UNABLE TO KEEP ARMS UP. INCONSISTENT IN NODDING YES AND SHAKING HEAD NO. WAKES UP TO VERBAL AND TACTILE STIMULATION, BUT FALLS RIGHT BACK ASLEEP WHEN LEFT ALONE FOR A BRIEF PERIOD OF TIME. CPOT OF 0-[address] NELSON NOTIFIED OF UNILATERAL MOVMENT, AND STATES TO CONTINUE TO MONITOR.
--- NOTE | 2020-10-13 16:34 | NUR ---
CALL WITH DAUGHTER DAUGHTER CALLED BETWEEN [phone] -- AND PHONE WAS PLACED TO PT's HEAD. DURING THIS PERIOD OF TIME THE PT WOULD OCCASSIONALLY OPEN HER EYES (PRIMARILY UPON THE NURSE'S AND HAND WEAVER'S COMMAND) BUT WOULD CLOSE IT AGAIN, AND THEN SHAKE HER HEAD (SOMETIMES FAIRLY VIOLENTLY). THE PT APPEARED IRRITATED, AND HER CPOT INCREASED TO 3-4. AFTER THE PHONE CALL, AND THE PT WAS GIVEN A CHANCE TO REST (AND NOT BEING STIMULATED BY FAMILY OR NURSING INTERVENTIONS) SHE WENT BACK TO SLEEP AND HER CPOT DECREASED TO A 0. THE PT OFTEN WILL WAKE UP, AND START SHAKING HER HEAD SLIGHTLY THE PROPOFOL WAS TURNED BACK ON AT 15 MCG/KG/MIN. HER HR DURING THIS TIME HAS INCREASED 120-140, SO CARDIZEM WAS INCREASED TO 15 MG/HR. WILL CONTINUE TO MONITOR.
--- NOTE | 2020-10-13 18:10 | NUR ---
END OF SHIFT NO MAJOR CHANGES SINCE LAST UPDATE. CURRENT GTTPs: PROPOFOL 20 MCG/KG/MIN, CARDIZEM 15 MG/HR, AND NS TKO WITH ZOSYN PB. VENT AT AC18/350/8/35%, PT IS BREATHING 20-24/MIN. HER SEDATION LEVEL IS A LIGHT SEDATION, WITH A CPOT OF 0-1 WITH NO STIMULATION, BUT WITH VERBAL/NOXIOUS STIMULI PT AROUSES, AND IS NOW ATTEMPTING TO OPEN EYES MOMENTARILY, BUT MAINLY MOVING HER HEAD BACK AND FORTH, NO LONGER MOVING HER RIGHT ARM OR FOOT. DURING THESE PERIODS SHE HAS CPOT OF 2-3. PT's HR HAS STEADILY GONE BACK UP TO THE 120-130s AND HAS BEEN CONSISTENT IN THAT RANGE FOR THE LAST 1-2 HOURS. AFTER [address]ING WITH [address] LESLIE MARCUSPRESSOR 25 MG BID PER TUBE WAS ADDED. BP HAS BEEN STABLE ALL DAY, MAP > 60. AFEBRRILE, TEMPERATURE HAS OFTEN BEEN ON THE COLDER SIDE, CURRENTLY 97.7 - PT HAS WARM BLANKET AND SHEETS COVERING HER. LASIX 40 MG IV WAS GIVEN THIS AFTERNOON AFTER PT HAS BEEN ANURIC, AND CURRENTLY THERE HAS BEEN NO URINE PRODUCTION. RECTAL TUBE IS STILL DRAINING, BUT THRE HAS BEEN LESS OUTPUT TODAY < 75 ML. POTASSIUM HAD INCREASAED TO 3.9 AFTER RECEIVING 60 MEQ TODAY, LAKEISHA WILL CONSIDER GIVING KCL PER TUBE GOING FORWARD. ELECTROLYTE PROTOCOL HAD BEEN INITIATED LAST NIGHT. BED LOW AND LOCKED.
--- NOTE | 2020-10-13 18:50 | NUR ---
UPDATE/BP LOW BLOOD PRESSURE READING, DECREASED CARDIZEM TO 12.5 MG/HR, AND PROPOFOL TO 10 MCG/KG/MIN. BP CUFF ON LEFT FOREARM/WRIST WAS ADJUSTED. WILL PASS ON TO CLYDE RN.
--- NOTE | 2020-10-13 19:40 | NUR ---
ASSUMPTION OF CARE RECEIVED REPORT FROM JOSI FRANKLIN AT 1915. ASSUMED CARE OF PATIENT. PATIENT VENTED WITH TUBE 7.5, 23 AT THE GUMS. PATIENT MOVING HEAD SIDE TO SIDE, SPONTNEOUSLY OPENED EYES BUT DOES NOT FOLLOW COMMANDS. HYPOTENSIVE, ON CARDIZEM, PROPOFOL AND RECEIVED METOPROLOL. WILL MONITOR. TF AT 20ML/HR, NEPRO ORDERED VIA OG. CHRISTIE FLUSHED, PATENT, NO URINE OUTPUT NOTED AT THIS TIME. RECTAL TUBE WITH DARK OUTPUT NOTED. WILL REVIEW ORDERS AND TREAT PRESCRIBED.
--- NOTE | 2020-10-13 22:17 | NUR ---
URINE OUTPUT AT 1930 NO URINE OUPUT WAS NOTED. SEDIMENT IN TUBING, FLUSHED CHRISTIE CATHETER WITH 10CC SODIUM CHLORIDE AND URINE BEGAN DRAINING INSTANTLY. URINE OUTPUT CONTINUES AT THIS TIME. WILL CONTINUE TO MONITOR.
--- NOTE | 2020-10-14 | NUR ---
REASSESSMENT NO ACUTE CHANGES FROM PREVIOUS ASSESSMENT. PATIENT EASILY AWAKENS ON PROPOFOL AND PRECEDEX. GRIMACES, AND STICKS TONGUE OUT AGAINST TUBE. LIFTS RIGHT ARM TOWARDS VENT WITH NO MOVEMENT NOTED FROM THE LEFT ARM. ADJUSTING TITRATIONS FOR PATIENT'S COMFORT AND TO KEEP BLOOD PRESSURE STABLE. WILL CONTINUE TO MONITOR.
--- NOTE | 2020-10-14 04:00 | NUR ---
REASSESSMENT NO ACUTE CHANGES FROM PREVIOUS ASSESSMENT. CARDIZEM AND PRECEDEX INFUSING, PROPOFOL IS TURNED OFF. PATIENT APPEARS COMFORTABLE, BUT DOES RESPOND TO PHYSICAL STIMULI. VENT SETTINGS UNCHAGED, VITALS STABLE. WILL CONTINUE TO MONITOR.
[2020-10-14 04:18] LABS: BASOPHILS ABSOLUTE AUTO 0.03 K/mm3 (0.00-0.23); BASOPHILS PERCENT AUTO 0 % (0-2); EOSINOPHILS PERCENT AUTO 0 % (0-6); Hematocrit 22.3 % (33.0-51.0); Hemoglobin 7.4 g/dL (11.5-16.0); IMMATURE GRAN ABSOLUTE AUTO 0.34 K/mm3 (0.00-0.10); IMMATURE GRAN PERCENT AUTO 1 % (0-1); LYMPHOCYTES ABSOLUTE AUTO 0.35 K/mm3 (0.84-5.20); LYMPHOCYTES PERCENT AUTO 2 % (21-46); MONOCYTES ABSOLUTE AUTO 0.48 K/mm3 (0.16-1.47); MONOCYTES PERCENT AUTO 2 % (4-13); Mean Corpuscular HGB 31.2 pg (26.0-34.0); Mean Corpuscular HGB Conc 33.2 g/dL (31.5-36.5); Mean Corpuscular Volume 94 fL (80-100); NEUTROPHILS ABSOLUTE AUTO 22.36 K/mm3 (1.96-9.15); NEUTROPHILS PERCENT AUTO 95 % (41-73); NRBC ABSOLUTE 0.06 K/mm3 (0.00-0.02); NRBC Auto 0.3 /100 WBC (0.0-0.2); Platelet Count 133 K/mm3 (150-400); RDW Coefficient Variation 18.2 % (11.7-14.2); RDW Standard Deviation 56.6 fL (35.1-46.3); Red Blood Cell Count 2.37 M/mm3 (3.80-5.20); White Blood Cell Count 23.56 K/mm3 (4.00-11.30)
[2020-10-14 04:36] LABS: Albumin, Blood 2.1 g/dL (3.4-5.0); Anion Gap 13 mmol/L (6-16); Blood Urea Nitrogen 140 mg/dL (8-24); CO2, Blood 24 mmol/L (21-32); Chloride, Blood 104 mmol/L (98-108); Creatinine, Blood 2.64 mg/dL (0.40-1.00); Glomerular Filtration Rate 19 (60-); Glucose, Blood 155 mg/dL (70-99); Phosphorus, Blood 4.8 mg/dL (2.5-4.9); Sodium, Blood 141 mmol/L (136-145); Vancomycin, Random 21.9 ug/mL
--- NOTE | 2020-10-14 06:14 | NUR ---
SHIFT SUMMARY PATIENT REMAINED VENTED, ADJUSTED SEDATION TO PRECEDEX. PROPOFOL AND CARDIZEM TURNED OFF. HEART RATE AND BLOOD PRESSURE STABLE. PATIENT EASILY AWAKENS, IS NOW MOVING BOTH UPPER EXTREMITIES AND SQUEEZING BOTH HANDS WHEN ASKED. TF CONTINUES AT GOAL OF 20ML/HR, TOLERATING WELL WITH LOW RESIDUALS. CHRISTIE AND RECTAL TUBE TO GRAVITY. WILL CONTINUE TO MONITOR AND REPORT TO ONCOMING RN.
--- NOTE | 2020-10-14 08:00 | NUR ---
PT REMAINS INTUBATED. SEDATED ON PRECEDEX @ 0.6 MCG/KG/MIN. PT GUPTA TO COMMAND, BUT VERY WEEK. PT NODS APPROPRIATELY TO "YES" OR "NO" QUESTIONS. PT DENIES PAIN. ECG CONTINUES AFIB WITH RATE 80-90'S. SBP TRENDING 90-120'S. GENERALIZED PITTING EDEMA CONTINUES. PT FEET ARE MOTTLED AND TOES ARE BLACK. ETT TO VENT: AC 18, TV 350, PEEP 8, FIO2 35%-SATS>90% LUNGS VERY COARSE THROUGH OUT AND DIMINISHED IN THE BASES. PT TOLERATING OGTF @ GOAL WITH MINIMAL RESIDUAL. CHRISTIE WITH SCANT AMOUNT OF DARK, YELLOW URINE TO UROMETER, ROUTINE AM LASIX GIVEN-SEE EMAR. WILL DISCUSS PLAN OF CARE WITH PT FAMILY AND PALLIATIVE CARE TODAY.
--- NOTE | 2020-10-14 10:00 | NUR ---
WOUND PHOTO TAKEN AND WOUND CARE COMPLETED. UPPER LEFT BORDER OF WOUND IS PURPLISH IN APPEARANCE. WOUND BED IS BEEFY RED COLOR AND SCATTERED AREAS OF SLOUGH NOTED. CLEANSED WITH WOUND CLEANSER AND PATTED DRY-FOAM DRESSING APPLIED.
--- NOTE | 2020-10-14 10:38 | NUR ---
MAP 48. PT HAS SCANT AMOUNT OF URINE TO UROMETER, DESPITE BEING GIVEN LASIX 40 MG IVP THIS AM.DR. WILLIS UPDATED.ORDERS GIVEN TO DC LASIX AND START NOREPINEPHRINE DRIP.
--- NOTE | 2020-10-14 11:00 | NUR ---
LEVOPHED DRIP @ 2 MCG/MIN-GOAL MAP 60-65. PT GRIMACING, COUGHING, AND APPEARS TENSE. MED WITH FENTANYL 50 MCG IVP X 1. PT WITH 20 CC OF URINE OUTPUT SO FAR THIS SHIFT. CHRISTIE REPLACED- URINE THICK AND PURULENT-UA SENT. IRRIGATED NEW CHRISTIE, BUT STILL VERY LITTLE URINE OUTPUT. WILL UPDATE DR. WILLIS.
[2020-10-14 11:50] LABS: Source, Urine Catheter
[2020-10-14 12:46] LABS: Bilirubin, Urine Neg (Neg); Blood, Urine 5+ (Neg); Glucose Qualitative, Urine Neg (Neg); Ketones, Urine Neg (Neg); Leukocyte Esterase, Urine 3+ (Neg); Nitrite, Urine Neg (Neg); Protein, Urine 1+ (Neg); Specific Gravity, Urine 1.005 (1.003-1.022); Urobilinogen, Urine NORM (Normal)
[2020-10-14 13:05] LABS: Appearance, Urine Cloudy (Clear); Color, Urine Pale Yellow (P-Yellow)
[2020-10-14 13:12] LABS: Bacteria Not Seen /hpf; Squamous Epithelial Cells Few /hpf (Few); Yeast/Fungi Urine Many /hpf
--- NOTE | 2020-10-14 13:42 | NUR ---
STILL ONLY A FEW DROPS OF URINE SINCE CHRISTIE REPLACED. DR. WILLIS AWARE. NEW #18 FR TEMP CHRISTIE PLACED-NO PURULENT DRAINAGE THIS TIME, BUT ONLY A FEW DROPS OF CLOUDY, DARK, YELLOW URINE OUT.
--- NOTE | 2020-10-14 17:38 | NUR ---
PT REMAINS INTUBATED. SEDATED ON PRECEDEX @0.7 MCG/KG/MIN. PT AGITATED WITH REPOSITIONING AND ORAL CARE. REACHED FOR ETT WHEN NOT RESTRAINED. LUNGS REMAIN COARSE THROUGH OUT. MAINTAINS SATS>90% ON FIO2 35%. FEW ETT SECRETIONS. PT CONTINUE TO TOLERATE OGT WELL. RATE INCREASED TO 30 CC/HR. RECTAL TUBE WITH 300 CC OF BLACK/BROWN LIQUID STOOL THIS SHIFT. CHRISTIE WITH 20 CC OF URINE OUT THIS SHIFT. DR. WILLIS AWARE. THEO AREA WITH YEAST-LIKE RASH NOTED. THEO AREA CLEANSED AND CALAZIME APPLIED. DIFLUCAN 400 MG IVPB INFUSING. SPOKE WITH PT DAUGHTER WENDI. UPDATED TO CURRENT STATUS AND PLAN OF CARE. DISCUSSED CODE STATUS AND THE POSSIBLILTY OF COMFORT CARE WITH HER. PT DAUGHTER STATES "I DON'T THINK SHE IS GOING TO MAKE IT OUT OF THERE THIS TIME. I THINK IT IS TIME TO MAKE HER COMFORTABLE." DR. WILLIS MADE AWARE OF THIS CONVERSATION. HE TOO SPOKE WITH WENDI. DURING DR. WILLIS CONVERSATION WITH WENDI, SHE STATED THAT SHE WANTED TO DISCUSS COMFORT CARE WITH THE REST OF THE FAMILY AND WILL NOTIFY US ABOUT THAT CONVERSATION.
--- NOTE | 2020-10-14 18:40 | NUR ---
RN STOOD AT THE BEDSIDE X 30 MIN WITH THE PHONE UP TO PT EAR. PT TEARFUL, GRIMACING, YET NODDING APPROPRIATELY TO QUESTIONS. PT NODS "NO " WHEN ASKED IF IN PAIN. PT NODS "YES" WHEN ASKED IF THE ETT WAS BOTHERING HER. PT LEFT HAND UNRESTRAINED AND ASSISTED PT TO HOLD UP HER ARM. PT THEN ABLE TO WAVE AT HE FAMILY ON COMMAND. AFTER LENGTHY DISCUSSION WITH PT KELLE ADAME, IT WAS DECIDED THAT PT IS TO BE MADE DNR AT THIS TIME. THE PLAN IS FOR PT TO BE MADE COMFORT CARE IN THE AM. PT KELLE ADAME WITH CALL AT 0900 IN THE AM TO CONFIRM THE TIME AND ARRANGE FOR VISITIATION. RIGOBERTO BENJAMIN FROM PALLIATIVE CARE UPDATED. RIGOBERTO BENJAMIN NOTIFIED DR. WILLIS AND PLACED THE OFFICAL ORDER FOR DNR.
--- NOTE | 2020-10-14 19:25 | NUR ---
ASSUMPTION OF CARE RECEIVED REPORT FROM CIERRA FRANKLIN, ASSUMED CARE OF PATIENT. PATIENT ON LEFT SIDE, VENTED WTIH ETT 7.5/23CM AT GUMS. VENT SETTINGS 18/350/8/35% SATS AT 90-91%. PATIENT OPENED EYES WHEN CALLED BY NAME, NODDED HEAD YES OR NO TO QUESTIONS APROPRIATELY. DENIED PAIN, BUT AGREED THE ETT WAS UNCOMFORTABLE. TOLERATING ETT WELL HOWEVER. PRECEDEX IS AT 0.7MCG/KG/HR. AFIB WITH RATE 80-105, LEVOPHED AT 1MCG/MIN WITH MAP ABOVE 65. NEPRO TF INFUSING VIA OG AT GOAL RATE OF 30ML/HR. CHRISTIE CATHETER WITH NO OUTPUT NOTED, RECTAL TUBE WITH DARK DRAINAGE CONTINUOUSLY DRAINING IN BAG. PATIENT WITH 4+ PITTING EDEMA THROUGHOUT EXTREMITIES, ALL ELEVATED ON PILLOWS. TOES PURPLE/DARK IN COLOR, COLD AND PAINFUL TO TOUCH. DOPPLERED PEDAL PULSES. WILL REVIEW ORDERS AND TREAT PRESCRIBED.
--- NOTE | 2020-10-15 | NUR ---
REASSESSMENT NO ACUTE CHANGES FROM PREVIOUS ASSESSMENT. TF REMAIN AT GOAL RATE OF 30ML/HR. PRECEDEX REMAINS AT 0.7MCG/KG/HR, LEVOPHED NOW AT 2MCG/MIN. PATIENT EASILY AWAKENS, STILL FOLLOWS COMMANDS AND MOVES HEAD TO ANSWER QUESTIONS APPROPRIATELY. VITALS STABLE. NO URINE OUTPUT NOTED. DR. WILLIS IS AWARE. WILL CONTINUE TO MONITOR.
[2020-10-15 03:44] LABS: PCO2 Arterial 30.9 mmHg (35-45); pH Blood Arterial 7.43 (7.35-7.45)
[2020-10-15 03:45] LABS: PO2 Arterial 59.5 mmHg (80-100)
--- NOTE | 2020-10-15 04:00 | NUR ---
REASSESSMENT NO ACUTE CHANGES FROM PREVIOUS ASSESSMENT. PATIENT STILL AWAKENS TO VOICE OR PHYSICAL STIMULI. REMAINS APPROPRIATE WITH ANSWERING QUESTIONS. ETT REMAINS UNCHANGES, VENT SETTINGS 18/350/8/35%, SATS 93%. PRECEDEX AT 0.7MCG/KG/HR. LEVOPHED AT 1MCG/MIN WITH MAP ABOVE 65. NO URINE OUTPUT NOTED. LIQUID STOOL CONTINUES VIA RECTAL TUBE. TUBE FEEDS REMAINS AT GOAL WITH RESIDUALS OF 10ML REFED. WILL CONTINUE TO MONITOR.
[2020-10-15 04:41] LABS: BASOPHILS ABSOLUTE AUTO 0.03 K/mm3 (0.00-0.23); BASOPHILS PERCENT AUTO 0 % (0-2); EOSINOPHILS PERCENT AUTO 0 % (0-6); Hematocrit 25.3 % (33.0-51.0); Hemoglobin 8.2 g/dL (11.5-16.0); IMMATURE GRAN ABSOLUTE AUTO 0.25 K/mm3 (0.00-0.10); IMMATURE GRAN PERCENT AUTO 1 % (0-1); LYMPHOCYTES ABSOLUTE AUTO 0.27 K/mm3 (0.84-5.20); LYMPHOCYTES PERCENT AUTO 1 % (21-46); MONOCYTES ABSOLUTE AUTO 0.49 K/mm3 (0.16-1.47); MONOCYTES PERCENT AUTO 2 % (4-13); Mean Corpuscular HGB 30.8 pg (26.0-34.0); Mean Corpuscular HGB Conc 32.4 g/dL (31.5-36.5); Mean Corpuscular Volume 95 fL (80-100); Mean Platelet Volume 11.9 fL (9.1-12.4); NEUTROPHILS ABSOLUTE AUTO 27.22 K/mm3 (1.96-9.15); NEUTROPHILS PERCENT AUTO 96 % (41-73); NRBC ABSOLUTE 0.04 K/mm3 (0.00-0.02); NRBC Auto 0.1 /100 WBC (0.0-0.2); Platelet Count 139 K/mm3 (150-400); RDW Coefficient Variation 18.4 % (11.7-14.2); RDW Standard Deviation 57.8 fL (35.1-46.3); Red Blood Cell Count 2.66 M/mm3 (3.80-5.20); White Blood Cell Count 28.26 K/mm3 (4.00-11.30)
[2020-10-15 05:07] LABS: Albumin, Blood 1.9 g/dL (3.4-5.0); Anion Gap 13 mmol/L (6-16); Blood Urea Nitrogen 148 mg/dL (8-24); Bun/Creatinine Ratio 48.7 (12.0-20.0); CO2, Blood 22 mmol/L (21-32); Calcium, Blood 6.6 mg/dL (8.5-10.1); Chloride, Blood 102 mmol/L (98-108); Creatinine, Blood 3.04 mg/dL (0.40-1.00); Glomerular Filtration Rate 16 (60-); Glucose, Blood 229 mg/dL (70-99); Magnesium, Blood 2.1 mg/dL (1.6-2.4); Phosphorus, Blood 6.2 mg/dL (2.5-4.9); Potassium, Blood 4.3 mmol/L (3.5-5.5); Sodium, Blood 137 mmol/L (136-145); Vancomycin, Random 19.3 ug/mL
--- NOTE | 2020-10-15 06:13 | NUR ---
SHIFT SUMMARY NO ACUTE EVENTS THROUGHOUT SHIFT. PATIENT REMAINS INTUBATED WITH VENT SETTING 18/350/8/35%, SATS REMAINED ABOVE 90%. PATIENT AWAKENS EASILY, RESPONDS TO QUESTIONS BY NODDING OR SHAKING HEAD NO. CALM/COOPERATIVE AND FOLLOWS COMMANDS. PRECEDEX AT 0.7.MCG/KG/HR FOR COMFORT. PATIENT CONTINUED TO DENY PAIN. TF AT GOAL RATE OF 30ML/HR, MINIMAL RESIDUALS. LEVOPHED AT 1MCG/MIN, MAPS ABOVE 65. CHRISTIE CATHETER WITH NO URINE OUTPUT, FLUSHED CHRISTIE WITH ONLY ML RETURNED THAT WERE USED TO FLUSH. RECTAL TUBE WITH CONTINUOUS LIQUID STOOL. WEEPING EDEMA PRESENT T/O ALL EXTREMITIES. LABS REVIEWED, WILL REPORT TO ONCOMING RN.
--- NOTE | 2020-10-15 08:00 | NUR ---
ASSUMED CARE REPORT RECIEVED. PT IS INTUBATED AND SEDATED. VENT SETTINGS AC 18, TV 350, PEEP 8, FIO2 35%. PT SEDATED WITH PRECEDEX AT 0.7 MCG/KG/MIN. PT OPENS EYES SPONTANEOUSLY AND FOLLOW SIMPLE COMMANDS. PT SHAKES HEAD YES OR NO TO QUESTIONS APPROPRIATELY. LEVOPHED ON STANDY. VITAL SIGNS STABLE AT THIS TIME. OGT IN PLACE WITH TF AT GOAL RATE. PICC TO NAM C/D/I. CHRISTIE TEMP PROBE IN PLACE WITH VERY MINIMAL URINE NOTED IN TUBING. RECTAL TUBE IN PLACE WITH LIQUID DARK BROWN/BLACK OUTPUT NOTED. PT WITH SEVERE EDEMA IN ARMS AND LEGS BILATERALLY. TOES DUSKY/PURPLE BILAT. WILL CONTINUE TO MONITOR.
--- NOTE | 2020-10-15 09:52 | NUR ---
FAMILY PT FAMILY AT WINDOW OUTSIDE OF THE ROOM. CALLED AND UPDATE PROVIDED. FAMILY AWAITING CALL FROM DR WILLIS TO DETERMINE PLAN OF CARE. DR WILLIS AWARE THAT FAMILY IS HERE AND EXPECTING CALL.
--- NOTE | 2020-10-15 11:39 | NUR ---
EXTUBATION PT COMFORT CARE STATUS. PT DAUGHTER AND SON AT BEDSIDE AT THIS TIME. PT EXTUBATED AND ALL DRIPS STOPPED AT 1120. PT APPEARS RESTLESS AND UNCOMFORTABLE S/P EXTUBATION. PT MED WITH MORPHINE AND ATIVAN PER EMAR. WILL CONTINUE TO MONITOR.
--- NOTE | 2020-10-15 11:56 | NUR ---
TIME OF CASSIDY HECK RN FROM PALLIAT[facility]ARE AT BEDSIDE WITH PT AND FAMILY. TIME OF CALLED AT 1148 BY CASSIDY. PT FAMILY REMAINS AT BEDSIDE. FAMILY REQUESTING [facility].
--- NOTE | 2020-10-15 12:09 | NUR ---
Spiritual care visit conducted. Patient's family is gathered outside patient's window. I facilitate a life review, and provide grief support and prayer. I stay with family through the extubation to the expiration providing comfort and allowing them to tell stories of patient and space to encourage one another. I provide a prayer of comfort after patient's .
== END 2020-10-15 14:45 | DRG 870 ==
LOC: ER 00:06 → ICUW 03:11 → ERHOLD 03:11 → ICUW 08:18
PROVIDERS: Emergency Medicine; Internal Medicine; Internal Medicine Critical Care Medicine; Pharmacist; ADMIT Internal Medicine
PROC: 5A09357 Assistance with Respiratory Ventilation, Less than 24 Consecutive Hours, Continuous Positive Airway Pressure (ICD-10-PCS; principal; 2020-10-04)
PROC: XW033E5 Introduction of Remdesivir Anti-infective into Peripheral Vein, Percutaneous Approach, New Technology Group 5 (ICD-10-PCS; 2020-10-04)
PROC: 04HL33Z Insertion of Infusion Device into Left Femoral Artery, Percutaneous Approach (ICD-10-PCS; 2020-10-04)
PROC: 02HV33Z Insertion of Infusion Device into Superior Vena Cava, Percutaneous Approach (ICD-10-PCS; 2020-10-04)
PROC: 3E043XZ Introduction of Vasopressor into Central Vein, Percutaneous Approach (ICD-10-PCS; 2020-10-04)
PROC: XW033E5 Introduction of Remdesivir Anti-infective into Peripheral Vein, Percutaneous Approach, New Technology Group 5 (ICD-10-PCS; 2020-10-05)
PROC: XW033E5 Introduction of Remdesivir Anti-infective into Peripheral Vein, Percutaneous Approach, New Technology Group 5 (ICD-10-PCS; 2020-10-06)
PROC: XW033E5 Introduction of Remdesivir Anti-infective into Peripheral Vein, Percutaneous Approach, New Technology Group 5 (ICD-10-PCS; 2020-10-07)
PROC: XW033E5 Introduction of Remdesivir Anti-infective into Peripheral Vein, Percutaneous Approach, New Technology Group 5 (ICD-10-PCS; 2020-10-08)
PROC: 5A1955Z Respiratory Ventilation, Greater than 96 Consecutive Hours (ICD-10-PCS; 2020-10-11)
PROC: 0BH18EZ Insertion of Endotracheal Airway into Trachea, Via Natural or Artificial Opening Endoscopic (ICD-10-PCS; 2020-10-11)
PROC: 0DJ08ZZ Inspection of Upper Intestinal Tract, Via Natural or Artificial Opening Endoscopic (ICD-10-PCS; 2020-10-12)
PROC: 30233N1 Transfusion of Nonautologous Red Blood Cells into Peripheral Vein, Percutaneous Approach (ICD-10-PCS; 2020-10-12)
DX: A41.89 Other specified sepsis (principal); U07.1 COVID-19; R65.21 Severe sepsis with septic shock; J96.02 Acute respiratory failure with hypercapnia; J96.01 Acute respiratory failure with hypoxia; J12.82 Pneumonia due to coronavirus disease 2019; J15.9 Unspecified bacterial pneumonia; N17.9 Acute kidney failure, unspecified; I48.92 Unspecified atrial flutter; I13.0 Hypertensive heart and chronic kidney disease with heart failure and stage 1 through stage 4 chronic kidney disease, or unspecified chronic kidney disease; I50.32 Chronic diastolic (congestive) heart failure; G93.40 Encephalopathy, unspecified; Z51.5 Encounter for palliative care; Z66 Do not resuscitate; Z79.82 Long term (current) use of aspirin; Z79.84 Long term (current) use of oral hypoglycemic drugs; I25.10 Atherosclerotic heart disease of native coronary artery without angina pectoris; E11.22 Type 2 diabetes mellitus with diabetic chronic kidney disease; N18.30 Chronic kidney disease, stage 3 unspecified; E87.5 Hyperkalemia; Z95.5 Presence of coronary angioplasty implant and graft; E11.51 Type 2 diabetes mellitus with diabetic peripheral angiopathy without gangrene; I72.4 Aneurysm of artery of lower extremity; I27.20 Pulmonary hypertension, unspecified; J44.9 Chronic obstructive pulmonary disease, unspecified; M81.0 Age-related osteoporosis without current pathological fracture; K44.9 Diaphragmatic hernia without obstruction or gangrene; E11.65 Type 2 diabetes mellitus with hyperglycemia; Z78.1 Physical restraint status; K25.9 Gastric ulcer, unspecified as acute or chronic, without hemorrhage or perforation; J39.2 Other diseases of pharynx; D64.9 Anemia, unspecified; I48.91 Unspecified atrial fibrillation; F17.210 Nicotine dependence, cigarettes, uncomplicated; R74.01 Elevation of levels of liver transaminase levels
CPT/HCPCS: 0241U; 31500; 36430; 36569; 36600; 36620; 51702; 51703; 71045; 80048; 80053; 80069; 80202; 81001; 82272; 82330; 82550; 82803; 82947; 83690; 83735; 83880; 84100; 84132; 84484; 85014; 85018; 85025; 85027; 85379; 85610; 85730; 86850; 86900; 86901; 86923; 87070; 87077; 87086; 87106; 87186; 87205; 93005; 93010; 93306; 93925; 94002; 94003; 94640; 94660; 96365; 96372-59; 96375; 99285-25; A9270; C1751; C9113; J0171; J0282; J0610; J1100; J1430; J1450; J1644; J1650; J1815; J1940; J1956; J2060; J2250; J2270; J2310; J2543; J2704; J3010; J3370; J3480; J7030; J7040; J7050; J7060; J7070; J7120; P9016; P9046; P9612